=== PATIENT | male | born 1940 | race Caucasian/White ===

== ENCOUNTER 2018-03-06 21:37 | Inpatient (IN) | payer MEDICARE, BC ==
[~2018-03-06] VITALS: Ht 177.8 cm; Wt 101.2 kg
[2018-03-06] MEDS ORDERED: MEXI150C16 PO (22:00)
[2018-03-06] MEDS ORDERED: METO25TA6 PO (22:00)
[2018-03-06] MEDS ORDERED: AMIO200T4 PO (22:00)
[2018-03-06] MEDS ORDERED: HYDR-4354 PO (22:00)
[2018-03-06] MEDS ORDERED: ASPI81TA44 PO (22:00)
[2018-03-06] MEDS ORDERED: ATOR80TA PO (22:00)
[2018-03-06] MEDS ORDERED: ALLO100T PO (22:00)
[2018-03-06] MEDS ORDERED: OMEG1CAP74 PO (22:00)
[2018-03-06] MEDS ORDERED: LEVO500T90 PO (22:00)
[2018-03-06] MEDS ORDERED: FURO-151 PO (22:00)
[2018-03-06] MEDS ORDERED: IPRA3AMP23 IH ×2 (22:00)
[2018-03-06] MEDS ORDERED: ALPR0.5T8 PO (22:00)
[2018-03-06] MEDS ORDERED: METO2.5T2 PO (22:00)
[2018-03-06] MEDS ORDERED: [UNRECOGNIZED DRUG - CODE] PO (22:00)
--- NOTE | 2018-03-06 22:28 | NUR ---
Admitting this 77 y/o male from [facility] with diagnosis of acute congestive heart failure. AAO x 4, no acute distress noted. On O2 at 2LPM via NC. No SOB or labored breathing noted. Verbally responsive and able to make needs known. VSS. Complaining of lower back pain 7/10 pain scale. Arrived via ambulance on gurney accompanied by 2 EMT's and family member. Dr. Rubin made aware of pt arrival and Dr. Breana Keen notified regarding med recon - per MD, continue all medications. Med Recon faxed to pharmacy. Routine admission care done. Oriented pt to room & unit. MRSA swab completed and sent to lab. All safety measures and fall precautions maintained. Call light and all personal belongings within reach. Will continue to monitor. Addendum: 03/07/18 at 0220 by Jake Naik RN In addition, noted with bernabe cath upon arrival to unit. Patent and intact draining yellow, clear urine into bag. Denies pain or discomfort at site. Continuing Levaquin 500mg PO x 3 more days for UTI from [facility].
[2018-03-06] MEDS ORDERED: ALPRAZOLAM 0.5 MG TABLET PO PRN (22:30)
--- NOTE | 2018-03-06 22:30 | NUR ---
Per Dr. Breana Keen, continue fluid restriction of 1200 ml/day. Order noted and carried out. Patient informed and verbalized understanding. Will continue to monitor.
[2018-03-06 23:00] VITALS: BP 106/59
--- NOTE | 2018-03-06 23:21 | NUR ---
Patient complaining of inability to sleep and requesting Xanax 0.5mg from med recon list from [facility]. MD Breana Keen notified and ordered Xanax 0.5mg ONCE PO. Order noted and carried out, pt tolerated well. Call light within reach. Safety maintained. Will continue to monitor.
[2018-03-07] MEDS ORDERED: Z GUARD REMEDY PASTE 57 GM TUBE TOP PRN (00:15)
[2018-03-07] MEDS: HYDROCODONE/APAP 5-325MG TABLET PO PRN ×2 (01:07→20:34)
--- NOTE | 2018-03-07 01:08 | NUR ---
Patient complaining of pain in lower back 8/[address] Rubin with new order of [place] 5-325mg PO BID PRN. Order noted and carried out. Tolerated medication well. Safety maintained. Call light within reach. Will continue to monitor.
[2018-03-07 04:50] VITALS: BP 127/65
[2018-03-07 07:30] VITALS: BP 126/68
[2018-03-07] MEDS ORDERED: HYDROCODONE/APAP 10-325 MG TABLET PO PRN (08:00)
[2018-03-07] MEDS ORDERED: ALBUTEROL SULFATE 2.5 MG/ 0.5 ML NEBU NEB PRN (08:00)
[2018-03-07] MEDS ORDERED: IPRATROPIUM BROMIDE 0.5 MG/2.5 ML NEBU NEB PRN (08:30)
[2018-03-07] MEDS ORDERED: MEXILETINE HCL 150 MG CAPSULE PO SCH (08:41)
[2018-03-07] MEDS ORDERED: FUROSEMIDE 40 MG TABLET PO SCH (09:00)
[2018-03-07] MEDS ORDERED: LEVOFLOXACIN 500 MG TABLET PO SCH (09:00)
[2018-03-07] MEDS ORDERED: METOLAZONE 2.5 MG TABLET PO SCH (09:00)
[2018-03-07] MEDS ORDERED: METOLAZONE 5 MG TABLET PO SCH (09:00)
[2018-03-07] MEDS ORDERED: METOPROLOL TARTRATE 25 MG TABLET PO SCH (09:02)
[2018-03-07] MEDS: IPRATROPIUM BROMIDE 0.5 MG/2.5 ML NEBU NEB SCH ×3 (09:05→21:22)
[2018-03-07] MEDS: ALBUTEROL SULFATE 2.5 MG/ 0.5 ML NEBU NEB SCH ×3 (09:05→21:23)
[2018-03-07] MEDS: ALLOPURINOL 100 MG TABLET PO SCH (09:47)
[2018-03-07] MEDS: AMIODARONE HCL 200 MG TABLET PO SCH (09:47)
[2018-03-07] MEDS: MULTIVIT, IRON, MIN NO. 8, FA TABLET PO SCH (09:47)
[2018-03-07] MEDS: OMEGA-3 FATTY ACIDS/FISH OIL CAPSULE PO SCH ×2 (09:48→16:35)
--- NOTE | 2018-03-07 11:08 | NUR ---
Received nursing report from police shift commander nurse. Pt. in bed comfortable. Pt A/OX4, responds to verbal and tactile stimuli. No SOB or acute distress noted, on 2.5 LPM via NC w/ SpO2 of 95%. Administered all due medications as ordered and tolerated well. Fall precautions in place. Assisted pt. with morning ADL's. No new skin condition noted. Noted with BLE +4 edema. On fluid restriction of 1.2L per 24 hr, no s/sx of dehydration. F/C with clear yellow urine output. Bed in locked and lowest position with side rails up x2, alarm on. Call light within reach. Will continue to monitor.
--- NOTE | 2018-03-07 11:27 | NUR ---
Dr. Rubin on-site came and evaluated pt. Ordered cardio consult for dx: CHF. Placed call to Dr. Chand (Roller Mill Operator) and able to touch base.
[2018-03-07 13:23] LABS: BASOPHILS % (AUTO) 0.5 % (0.0-2.0); EOSINOPHILS # (AUTO) 0.1 K/uL (0.0-0.7); EOSINOPHILS % (AUTO) 1.1 % (0.0-7.0); HEMATOCRIT 29.1 % (36.7-47.1); HEMOGLOBIN 9.1 g/dL (12.5-16.3); LYMPHOCYTES # (AUTO) 0.8 K/uL (20.0-40.0); LYMPHOCYTES % (AUTO) 9.1 % (20.5-51.5); MEAN CORPUSCULAR HGB CONC 32 g/dL (32.5-36.3); MEAN CORPUSCULAR VOLUME 76.3 fL (73.0-96.2); MONOCYTES # (AUTO) 0.8 K/uL (2.0-10.0); MONOCYTES % (AUTO) 9.5 % (0.0-11.0); NEUTROPHILS # (AUTO) 6.8 K/uL (1.8-8.9); NEUTROPHILS % (AUTO) 79.8 % (38.5-71.5); PLATELET COUNT (AUTO) 336 K/uL (152-348); RED BLOOD CELL COUNT(AUTO) 3.81 MIL/uL (4.06-5.63); WHITE BLOOD COUNT (AUTO) 8.5 K/uL (3.6-10.2)
[2018-03-07 13:33] LABS: CARBON DIOXIDE 26 mmol/L (21-32); CHLORIDE 102 mmol/L (98-107); CREATININE 3.8 mg/dL (0.6-1.3); GLUCOSE 151 mg/dL (74-106); MAGNESIUM 2.4 mg/dL (1.8-2.4); PHOSPHOROUS 3.9 mg/dL (2.5-4.9); UREA NITROGEN, BLOOD 67 mg/dL (7-18)
[2018-03-07] MEDS ORDERED: MEXILETINE HCL 150 MG PO SCH (14:00)
--- NOTE | 2018-03-07 15:00 | NUR ---
Started PIV on LH (24G) x 1 attempt with good blood return, flushed with 5CC of 0.9% NS with no resistance met. Secured with tegaderm. Pt. tolerated procedure well. IV lasix given as ordered, no ASE noted.
[2018-03-07] MEDS: FUROSEMIDE 40 MG/4 ML VIAL IV SCH ×2 (15:19→21:25)
[2018-03-07] MEDS: LEVOFLOXACIN 250 MG TABLET PO SCH (15:36)
[2018-03-07] MEDS: METOLAZONE 2.5 MG TABLET PO SCH ×2 (15:39→16:37)
--- NOTE | 2018-03-07 15:47 | NUR ---
Received and relayed ekg results from Dr. Graham (Dehydrogenation Converter Operator). Noted ECG with abnormal rhythm, ST elevation. MD promptly made aware. No new order from MD at this time. Pt. remain asymptomatic, denies SOB, chest pain, chest tightness. No neck discomfort or tightness. Pt. denies anxiety, palpitations or shoulder discomfort. Will continue to monitor accordingly.
[2018-03-07 16:00] VITALS: BP 121/55
[2018-03-07] MEDS: CARVEDILOL 6.25 MG TABLET PO SCH (17:02)
--- NOTE | 2018-03-07 18:12 | NUR ---
End of shift: All due medications administered as ordered and tolerated well. Encouraged PO fluid intake as tolerated. No new skin condition noted. 2X upper side rails up as enabler for bed positioning and mobility. 5PM metolazone held as medication too close to administer to prior dose, consulted with house pharmacist and agreed. Pt. and family made aware and agreed. Of note, informed nursing staff that "[place]" med should not be given per pt. transportation mechanic (Dr. Morel). unable to provide phone number for Dr. Morel at this time. Call light and all frequently used items within pt. reach. Will endorse to oncoming shift accordingly.
[2018-03-07 19:25] VITALS: BP 106/65
--- NOTE | 2018-03-07 19:25 | NUR ---
SBAR received from day shift nurse. Pt alert and oriented x 4. No complaint of SOB or pain at this time. No SOB or acute distress noted. Patient of 2L of O2 at this time. Fall precautions in place. On fluid restrictions of 1.2 L per 24 hr. No signs or symptoms of dehydration. Romero catheter of clear yellow urine at this time. Call light and frequently used items within reach. Will continue to monitor.
[2018-03-07] MEDS: ALPRAZOLAM 0.5 MG TABLET PO PRN (20:34)
[2018-03-07] MEDS: ASPIRIN EC 81 MG TABLET.DR PO SCH (20:34)
--- NOTE | 2018-03-07 21:24 | NUR ---
PT REQUEST BREATHING TX EARLY BECAUSE HE WANTED TO SLEEP AND DID NOT WANT TO BE WAKEN UP AT 2300.
[2018-03-07] MEDS: ATORVASTATIN 40 MG TABLET PO SCH (21:25)
[2018-03-08 04:40] VITALS: BP 117/55
[2018-03-08] MEDS: FUROSEMIDE 40 MG/4 ML VIAL IV SCH ×3 (05:24→20:46)
--- NOTE | 2018-03-08 06:53 | NUR ---
No complaint of SOB or pain. All due medications given-tolerated well. IV pulled out overnight. New 24G IV in right hand placed. Intact and patent. Romero draining yellow urine. Safety precautions maintained throughout the shift. Side rails up bilaterally for safety. Call light and most used items within reach. Will endorse to oncoming shift accordingly.
[2018-03-08 07:30] LABS: ALANINE AMINOTRANSFERASE 53 U/L (16-63); ALKALINE PHOSPHATASE 110 U/L (50-136); ASPARTATE AMINOTRANSFERASE 38 U/L (15-37); BILIRUBIN,TOTAL 0.6 mg/dL (0.2-1.0); CARBON DIOXIDE 29 mmol/L (21-32); CHLORIDE 103 mmol/L (98-107); GLUCOSE 100 mg/dL (74-106); MAGNESIUM 2.1 mg/dL (1.8-2.4); POTASSIUM 3.4 mmol/L (3.5-5.1); TOTAL PROTEIN, SERUM 5.8 g/dL (6.4-8.2)
[2018-03-08 07:44] LABS: BASOPHILS # (AUTO) 0.1 K/uL (0.0-8.0); BASOPHILS % (AUTO) 0.7 % (0.0-2.0); EOSINOPHILS # (AUTO) 0.3 K/uL (0.0-0.7); EOSINOPHILS % (AUTO) 3.5 % (0.0-7.0); HEMATOCRIT 27.3 % (36.7-47.1); HEMOGLOBIN 8.8 g/dL (12.5-16.3); LYMPHOCYTES % (AUTO) 12.9 % (20.5-51.5); MEAN CORPUSCULAR HEMOGLOBIN 24.2 uug (23.8-33.4); MEAN CORPUSCULAR HGB CONC 32 g/dL (32.5-36.3); MEAN CORPUSCULAR VOLUME 75.4 fL (73.0-96.2); MONOCYTES # (AUTO) 0.9 K/uL (2.0-10.0); MONOCYTES % (AUTO) 11.3 % (0.0-11.0); NEUTROPHILS # (AUTO) 5.7 K/uL (1.8-8.9); NEUTROPHILS % (AUTO) 71.6 % (38.5-71.5); PLATELET COUNT (AUTO) 313 K/uL (152-348); RED BLOOD CELL COUNT(AUTO) 3.62 MIL/uL (4.06-5.63)
[2018-03-08 08:16] LABS: UREA NITROGEN, BLOOD 69 mg/dL (7-18)
[2018-03-08 08:35] VITALS: BP 127/63
[2018-03-08] MEDS ORDERED: METOLAZONE 5 MG TABLET PO SCH (09:00)
[2018-03-08] MEDS: ALBUTEROL SULFATE 2.5 MG/ 0.5 ML NEBU NEB SCH ×3 (09:05→23:20)
[2018-03-08] MEDS: IPRATROPIUM BROMIDE 0.5 MG/2.5 ML NEBU NEB SCH ×3 (09:06→23:20)
[2018-03-08] MEDS: MULTIVIT, IRON, MIN NO. 8, FA TABLET PO SCH (09:38)
[2018-03-08] MEDS: OMEGA-3 FATTY ACIDS/FISH OIL CAPSULE PO SCH ×2 (09:38→17:39)
[2018-03-08] MEDS: ALLOPURINOL 100 MG TABLET PO SCH (09:38)
[2018-03-08] MEDS: AMIODARONE HCL 200 MG TABLET PO SCH (09:38)
[2018-03-08] MEDS: CARVEDILOL 6.25 MG TABLET PO SCH ×2 (09:39→17:40)
[2018-03-08] MEDS: METOLAZONE 2.5 MG TABLET PO SCH ×2 (09:39→17:39)
[2018-03-08] MEDS ORDERED: POTASSIUM CHLORIDE 20 MEQ TAB.PRT.SR PO ONE (12:00)
[2018-03-08] MEDS: LEVOFLOXACIN 250 MG TABLET PO SCH (13:53)
[2018-03-08] MEDS ORDERED: MUPIROCIN 2% OINT 22 GM TUBE TP SCH (14:30)
--- NOTE | 2018-03-08 14:30 | NUR ---
informed him of his positive test results and that he will be on contact isolation. explained what that entails. verbalize understanding
[2018-03-08 16:55] VITALS: BP 137/71
--- NOTE | 2018-03-08 19:27 | NUR ---
SBAR received from day shift nurse. Pt alert and oriented x 4. No complaint of SOB or pain at this time. 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 Patient on 2L of O2 at this time. Fall precautions in place. On fluid restrictions of 1.2 L per 24 hr. Romero catheter flowing clear yellow urine at this time. Call light and frequently used items within reach. Will continue to monitor.
[2018-03-08] MEDS: ATORVASTATIN 40 MG TABLET PO SCH (20:46)
[2018-03-08] MEDS: ASPIRIN EC 81 MG TABLET.DR PO SCH (20:46)
[2018-03-08] MEDS: HYDROCODONE/APAP 5-325MG TABLET PO PRN (20:46)
[2018-03-08] MEDS: ALPRAZOLAM 0.5 MG TABLET PO PRN (20:46)
[2018-03-08] MEDS: MUPIROCIN 2% OINT 22 GM TUBE NS SCH (20:47)
[2018-03-08] MEDS ORDERED: MUPIROCIN 2% OINT 22 GM TUBE NS SCH (21:00)
[2018-03-08 21:19] VITALS: BP 99/51
[2018-03-09] MEDS: FUROSEMIDE 40 MG/4 ML VIAL IV SCH ×2 (05:00→05:30)
[2018-03-09 05:30] VITALS: BP 130/56
--- NOTE | 2018-03-09 05:58 | NUR ---
0530 dose of 40 mg IV Lasix attempted, unable to be given. IV infiltrated and 3 attempts made for a replacement. None successful. Patient refused further attempts requesting medication be given PO. Relayed to called to [facility] absorption operator doctor for further orders. No reply as of yet. Will continue to monitor.
--- NOTE | 2018-03-09 06:15 | NUR ---
Spoke with Dr. Monsalve about Lasix order. Ordered Lasix 40mg PO once, with rounding doctor to follow up. Will endorse to oncoming shift.
[2018-03-09] MEDS ORDERED: FUROSEMIDE 40 MG TABLET PO ONE (06:30)
[2018-03-09 07:49] LABS: BASOPHILS % (AUTO) 0.4 % (0.0-2.0); EOSINOPHILS # (AUTO) 0.3 K/uL (0.0-0.7); EOSINOPHILS % (AUTO) 3.4 % (0.0-7.0); HEMATOCRIT 28.4 % (36.7-47.1); HEMOGLOBIN 9.3 g/dL (12.5-16.3); LYMPHOCYTES # (AUTO) 0.8 K/uL (20.0-40.0); LYMPHOCYTES % (AUTO) 8.6 % (20.5-51.5); MEAN CORPUSCULAR HEMOGLOBIN 24.5 uug (23.8-33.4); MEAN CORPUSCULAR HGB CONC 33 g/dL (32.5-36.3); MEAN CORPUSCULAR VOLUME 74.9 fL (73.0-96.2); MONOCYTES # (AUTO) 0.9 K/uL (2.0-10.0); MONOCYTES % (AUTO) 9.6 % (0.0-11.0); NEUTROPHILS # (AUTO) 7.3 K/uL (1.8-8.9); PLATELET COUNT (AUTO) 337 K/uL (152-348); WHITE BLOOD COUNT (AUTO) 9.3 K/uL (3.6-10.2)
[2018-03-09 07:50] LABS: ALANINE AMINOTRANSFERASE 49 U/L (16-63); ALKALINE PHOSPHATASE 112 U/L (50-136); ASPARTATE AMINOTRANSFERASE 36 U/L (15-37); BILIRUBIN,TOTAL 0.6 mg/dL (0.2-1.0); CARBON DIOXIDE 29 mmol/L (21-32); CHLORIDE 102 mmol/L (98-107); CREATININE 3.7 mg/dL (0.6-1.3); GLUCOSE 113 mg/dL (74-106); MAGNESIUM 2.2 mg/dL (1.8-2.4); PHOSPHOROUS 3.9 mg/dL (2.5-4.9); POTASSIUM 3.3 mmol/L (3.5-5.1); TOTAL PROTEIN, SERUM 6.2 g/dL (6.4-8.2); UREA NITROGEN, BLOOD 67 mg/dL (7-18)
[2018-03-09 08:10] VITALS: BP 130/59
[2018-03-09] MEDS: ALLOPURINOL 100 MG TABLET PO SCH (09:24)
[2018-03-09] MEDS: MUPIROCIN 2% OINT 22 GM TUBE NS SCH ×2 (09:24→20:24)
[2018-03-09] MEDS: AMIODARONE HCL 200 MG TABLET PO SCH (09:24)
[2018-03-09] MEDS: MULTIVIT, IRON, MIN NO. 8, FA TABLET PO SCH (09:24)
[2018-03-09] MEDS: OMEGA-3 FATTY ACIDS/FISH OIL CAPSULE PO SCH ×2 (09:25→16:55)
[2018-03-09] MEDS: METOLAZONE 2.5 MG TABLET PO SCH ×2 (09:25→16:55)
[2018-03-09] MEDS: CARVEDILOL 6.25 MG TABLET PO SCH ×2 (09:25→17:00)
[2018-03-09] MEDS: ALBUTEROL SULFATE 2.5 MG/ 0.5 ML NEBU NEB SCH ×3 (09:52→22:44)
[2018-03-09] MEDS: IPRATROPIUM BROMIDE 0.5 MG/2.5 ML NEBU NEB SCH ×3 (09:52→22:44)
--- NOTE | 2018-03-09 10:00 | NUR ---
Received nursing report from hotel night auditor nurse. Pt. in w/c comfortable. Pt A/OX4, responds to verbal and tactile stimuli. No SOB or acute distress noted, on 2.5 LPM via NC w/ SpO2 of 97%. Administered all due medications as ordered and tolerated well. Fall precautions in place. Assisted pt. with morning ADL's. No new skin condition noted. Noted with BLE +4 edema, encouraged pt. to elevated BLE when in bed. On fluid restriction of 1.2L per 24 hr, no s/sx of dehydration. F/C with clear yellow urine output. Bed in locked and lowest position with side rails up x2, alarm on. Call light within reach. Will continue to monitor.
[2018-03-09 10:03] LABS: EOSINOPHILS % (MANUAL) 2 % (0-8); LYMPHOCYTES % (MANUAL) 5 % (20-40); MONOCYTES % (MANUAL) 6 % (2-10); NEUTROPHILS % (MANUAL) 87 % (42-75)
--- NOTE | 2018-03-09 11:00 | NUR ---
Dr. Bsos and Dr. Bansal came and seen pt. Informed MD that pt. refused IV to be started due to poor venous access. MD infante to d/c IV lasix and started pt. on PO Bumex. 3.3 Potassium level was replaced with KCL 40 MEQ PO once.
[2018-03-09] MEDS ORDERED: POTASSIUM CHLORIDE 20 MEQ POWDER PACKET PO ONE (11:15)
[2018-03-09] MEDS: BUMETANIDE 1 MG TABLET PO SCH ×2 (11:41→16:55)
[2018-03-09] MEDS: LEVOFLOXACIN 250 MG TABLET PO SCH (14:50)
--- NOTE | 2018-03-09 15:34 | NUR ---
INTERDISCIPLINARY TEAM CONFERENCE
[2018-03-09 16:11] VITALS: BP 123/60
--- NOTE | 2018-03-09 18:23 | NUR ---
End of shift: All due medications administered as ordered and tolerated well. No new skin condition noted. 2X upper side rails up as enabler for bed positioning and mobility. F/C patent and intact with yellow/clear urine output. Kept pt. clean and dry. Call light and all frequently used items within pt. reach. Will endorse to oncoming shift accordingly.
--- NOTE | 2018-03-09 19:25 | NUR ---
SBAR received from AM nurse. Pt alert and oriented x 4. No complaint of SOB or pain at this time. 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 Patient on 2L of O2 at this time. Fall precautions in place. On fluid restrictions of 1.2 L per 24 hr. Romero catheter flowing clear yellow urine at this time. Call light and frequently used items within reach. Will continue to monitor.
[2018-03-09] MEDS: ATORVASTATIN 40 MG TABLET PO SCH (20:24)
[2018-03-09] MEDS: ASPIRIN EC 81 MG TABLET.DR PO SCH (20:24)
[2018-03-09] MEDS: ALPRAZOLAM 0.5 MG TABLET PO PRN (20:27)
[2018-03-09] MEDS: HYDROCODONE/APAP 5-325MG TABLET PO PRN (20:28)
[2018-03-09 20:29] VITALS: BP 117/51
[2018-03-10 04:40] VITALS: BP 103/66
--- NOTE | 2018-03-10 06:55 | NUR ---
Patient slept well throughout the night. No distress or SOB during shift. All due medications given-tolerated well. Romero draining yellow urine. Safety precautions maintained throughout the shift. Side rails up bilaterally for safety. Call light and most used items within reach. Will endorse to oncoming shift accordingly.
[2018-03-10 07:20] VITALS: BP 115/51
[2018-03-10 07:33] LABS: ALANINE AMINOTRANSFERASE 47 U/L (16-63); ALKALINE PHOSPHATASE 121 U/L (50-136); ASPARTATE AMINOTRANSFERASE 35 U/L (15-37); BILIRUBIN,TOTAL 0.7 mg/dL (0.2-1.0); CARBON DIOXIDE 28 mmol/L (21-32); CHLORIDE 99 mmol/L (98-107); CREATININE 3.5 mg/dL (0.6-1.3); GLUCOSE 93 mg/dL (74-106); POTASSIUM 3.7 mmol/L (3.5-5.1); TOTAL PROTEIN, SERUM 6.5 g/dL (6.4-8.2); UREA NITROGEN, BLOOD 66 mg/dL (7-18)
[2018-03-10] MEDS: IPRATROPIUM BROMIDE 0.5 MG/2.5 ML NEBU NEB SCH ×3 (08:01→23:25)
[2018-03-10] MEDS: ALBUTEROL SULFATE 2.5 MG/ 0.5 ML NEBU NEB SCH ×3 (08:01→23:25)
[2018-03-10] MEDS: MUPIROCIN 2% OINT 22 GM TUBE NS SCH ×2 (08:13→20:33)
[2018-03-10] MEDS: METOLAZONE 2.5 MG TABLET PO SCH ×2 (08:14→17:17)
[2018-03-10] MEDS: OMEGA-3 FATTY ACIDS/FISH OIL CAPSULE PO SCH ×2 (08:14→17:17)
[2018-03-10] MEDS: AMIODARONE HCL 200 MG TABLET PO SCH (08:14)
[2018-03-10] MEDS: MULTIVIT, IRON, MIN NO. 8, FA TABLET PO SCH (08:14)
[2018-03-10] MEDS: ALLOPURINOL 100 MG TABLET PO SCH (08:14)
[2018-03-10] MEDS: BUMETANIDE 1 MG TABLET PO SCH ×2 (08:14→17:17)
[2018-03-10] MEDS: CARVEDILOL 6.25 MG TABLET PO SCH ×2 (08:15→17:19)
--- NOTE | 2018-03-10 10:54 | NUR ---
Received nursing report from fast food shift lead nurse. Pt. in w/c comfortable. Pt A/OX4, responds to verbal and tactile stimuli. No SOB or acute distress noted, on 2.5 LPM via NC w/ SpO2 of 97% tolerating well. Administered all due medications as ordered and tolerated well. Fall precautions in place. Assisted pt. with morning ADL's. No new skin condition noted. Encouraged pt. to elevated BLE when in bed. Remained on fluid restriction. F/C with clear yellow urine output. Bed in locked and lowest position with side rails up x2, alarm on. Call light within reach. Will continue to monitor.
--- NOTE | 2018-03-10 15:31 | NUR ---
INTERDISCIPLINARY TEAM CONFERENCE
[2018-03-10 16:00] VITALS: BP 121/58
--- NOTE | 2018-03-10 18:27 | NUR ---
End of shift: All due medications administered as ordered and tolerated well. No new skin condition noted. 2X upper side rails up as enabler for bed positioning and mobility. F/C patent and intact with yellow/clear urine output. Kept pt. clean and dry. No c/o from pt. throughout this shift. Call light and all frequently used items within pt. reach. Will endorse to oncoming shift accordingly.
[2018-03-10 19:50] VITALS: BP 111/53
[2018-03-10] MEDS: ASPIRIN EC 81 MG TABLET.DR PO SCH (20:33)
[2018-03-10] MEDS: ATORVASTATIN 40 MG TABLET PO SCH (20:33)
[2018-03-10] MEDS: ALPRAZOLAM 0.5 MG TABLET PO PRN (20:34)
[2018-03-10] MEDS: HYDROCODONE/APAP 5-325MG TABLET PO PRN (20:34)
--- NOTE | 2018-03-10 23:34 | NUR ---
Received pt sitting on the chair at bedside. AAO x4. On 2L O2 via NC, no acute distress noted. C/o pain on shoulder blades 07/20. [place] PRN given. All due meds given as ordered. Romero catheter draining well with yellow colored urine. Contact isolation implemented. Safety measures maintained. Call light and personal belongings within reach. Will continue to monitor.
[2018-03-11 04:30] VITALS: BP 103/44
--- NOTE | 2018-03-11 06:49 | NUR ---
Pt slept comfortably at night. Romero catheter draining well with clear yellow colored urine. All needs attended to promptly. No new changes t/o the shift. Continue to monitor.
[2018-03-11 07:20] VITALS: BP 100/50
[2018-03-11 07:58] LABS: ALANINE AMINOTRANSFERASE 31 U/L (16-63); ALKALINE PHOSPHATASE 89 U/L (50-136); ASPARTATE AMINOTRANSFERASE 30 U/L (15-37); BILIRUBIN,TOTAL 0.5 mg/dL (0.2-1.0); CARBON DIOXIDE 31 mmol/L (21-32); CHLORIDE 101 mmol/L (98-107); CREATININE 3.2 mg/dL (0.6-1.3); GLUCOSE 88 mg/dL (74-106); TOTAL PROTEIN, SERUM 5.2 g/dL (6.4-8.2); UREA NITROGEN, BLOOD 64 mg/dL (7-18)
[2018-03-11] MEDS: CARVEDILOL 6.25 MG TABLET PO SCH ×2 (08:00→17:08)
[2018-03-11] MEDS: MUPIROCIN 2% OINT 22 GM TUBE NS SCH ×2 (08:11→20:41)
[2018-03-11] MEDS: MULTIVIT, IRON, MIN NO. 8, FA TABLET PO SCH (08:12)
[2018-03-11] MEDS: OMEGA-3 FATTY ACIDS/FISH OIL CAPSULE PO SCH ×2 (08:12→16:52)
[2018-03-11] MEDS: ALLOPURINOL 100 MG TABLET PO SCH (08:12)
[2018-03-11] MEDS: BUMETANIDE 1 MG TABLET PO SCH ×2 (08:12→16:50)
[2018-03-11] MEDS: AMIODARONE HCL 200 MG TABLET PO SCH (08:12)
[2018-03-11] MEDS: METOLAZONE 2.5 MG TABLET PO SCH ×3 (08:12→16:50)
[2018-03-11] MEDS: IPRATROPIUM BROMIDE 0.5 MG/2.5 ML NEBU NEB SCH ×3 (08:24→23:30)
[2018-03-11] MEDS: ALBUTEROL SULFATE 2.5 MG/ 0.5 ML NEBU NEB SCH ×3 (08:24→23:30)
[2018-03-11] MEDS ORDERED: POTASSIUM CHLORIDE 20 MEQ TAB.PRT.SR PO ONE (08:45)
--- NOTE | 2018-03-11 10:19 | NUR ---
Received nursing report from plant operator/shift supervisor nurse. Pt. in w/c comfortable. Pt A/OX4, responds to verbal and tactile stimuli. No SOB or acute distress noted, on 2.0 LPM via NC w/ SpO2 of 97% tolerating well. Administered all due medications as ordered and tolerated well. Dr. Boss came and evaluated pt with new orders. MD promptly made aware of K: 3.3 level, MD with order for K replacement (40meq). Wt pt. this AM noted with 230# on chair scale and 270# on bed scale. Fall precautions in place. Assisted pt. with morning ADL's. No new skin condition noted. Encouraged pt. to elevated BLE when in bed. Maintained fluid restriction of 1.2L. F/C with clear yellow urine output. Bed in locked and lowest position with side rails up x2, alarm on. Call light within reach. Will continue to monitor.
[2018-03-11] MEDS: HYDROCODONE/APAP 5-325MG TABLET PO PRN ×2 (12:41→20:43)
[2018-03-11 16:06] VITALS: BP 119/50
--- NOTE | 2018-03-11 18:10 | NUR ---
End of shift: All due medications administered as ordered and tolerated well. No new skin condition noted. F/C patent and intact with yellow/clear urine output. Family at pt. bedside for support. Kept pt. clean and dry. Call light and all frequently used items within pt. reach. Will endorse to oncoming shift accordingly.
[2018-03-11 20:00] VITALS: BP 125/58
[2018-03-11] MEDS: ATORVASTATIN 40 MG TABLET PO SCH (20:41)
[2018-03-11] MEDS: ASPIRIN EC 81 MG TABLET.DR PO SCH (20:41)
[2018-03-11] MEDS: ALPRAZOLAM 0.5 MG TABLET PO PRN (20:43)
--- NOTE | 2018-03-11 22:05 | NUR ---
Received pt sitting on the chair at bedside. AAO x4. Son at bedside. On 2L O2 via NC, tolerating well. No acute distress noted. C/o pain 6/10 on the feet and shoulder blades. PRN [place] given. VSS. All due meds given as ordered. Romero catheter intact, draining with clear yellow colored urine. Safety measures maintained. Call light and personal belongings within reach. Will continue to monitor.
[2018-03-12 04:46] VITALS: BP 112/79
[2018-03-12] MEDS: HYDROCODONE/APAP 5-325MG TABLET PO PRN ×2 (06:23→20:12)
[2018-03-12 06:52] LABS: BASOPHILS # (AUTO) 0.1 K/uL (0.0-8.0); BASOPHILS % (AUTO) 0.7 % (0.0-2.0); EOSINOPHILS # (AUTO) 0.3 K/uL (0.0-0.7); EOSINOPHILS % (AUTO) 3.1 % (0.0-7.0); HEMATOCRIT 28.5 % (36.7-47.1); HEMOGLOBIN 9.2 g/dL (12.5-16.3); LYMPHOCYTES # (AUTO) 1.2 K/uL (20.0-40.0); LYMPHOCYTES % (AUTO) 12.1 % (20.5-51.5); MEAN CORPUSCULAR HGB CONC 32 g/dL (32.5-36.3); MONOCYTES % (AUTO) 10.1 % (0.0-11.0); NEUTROPHILS # (AUTO) 7.3 K/uL (1.8-8.9); PLATELET COUNT (AUTO) 317 K/uL (152-348); RED BLOOD CELL COUNT(AUTO) 3.85 MIL/uL (4.06-5.63); WHITE BLOOD COUNT (AUTO) 9.9 K/uL (3.6-10.2)
[2018-03-12 07:02] LABS: ALANINE AMINOTRANSFERASE 41 U/L (16-63); ALKALINE PHOSPHATASE 96 U/L (50-136); ASPARTATE AMINOTRANSFERASE 40 U/L (15-37); BILIRUBIN,TOTAL 0.5 mg/dL (0.2-1.0); CARBON DIOXIDE 30 mmol/L (21-32); CHLORIDE 101 mmol/L (98-107); CREATININE 3.4 mg/dL (0.6-1.3); GLUCOSE 102 mg/dL (74-106); POTASSIUM 3.3 mmol/L (3.5-5.1); UREA NITROGEN, BLOOD 66 mg/dL (7-18)
[2018-03-12 07:16] LABS: MAGNESIUM 1.9 mg/dL (1.8-2.4); PHOSPHOROUS 3.4 mg/dL (2.5-4.9)
[2018-03-12] MEDS: ALBUTEROL SULFATE 2.5 MG/ 0.5 ML NEBU NEB SCH ×3 (07:57→23:19)
[2018-03-12] MEDS: IPRATROPIUM BROMIDE 0.5 MG/2.5 ML NEBU NEB SCH ×3 (07:57→23:19)
[2018-03-12 08:00] VITALS: BP 96/63
[2018-03-12] MEDS: BUMETANIDE 1 MG TABLET PO SCH ×2 (09:22→16:04)
[2018-03-12] MEDS: OMEGA-3 FATTY ACIDS/FISH OIL CAPSULE PO SCH ×2 (09:22→16:10)
[2018-03-12] MEDS: CARVEDILOL 6.25 MG TABLET PO SCH ×2 (09:24→16:10)
[2018-03-12] MEDS: METOLAZONE 2.5 MG TABLET PO SCH ×2 (09:24→16:02)
[2018-03-12] MEDS: ALLOPURINOL 100 MG TABLET PO SCH (09:24)
[2018-03-12] MEDS: MULTIVIT, IRON, MIN NO. 8, FA TABLET PO SCH (09:25)
[2018-03-12] MEDS: AMIODARONE HCL 200 MG TABLET PO SCH (09:26)
[2018-03-12] MEDS: MUPIROCIN 2% OINT 22 GM TUBE NS SCH ×2 (09:29→20:12)
[2018-03-12] MEDS ORDERED: POTASSIUM CHLORIDE 20 MEQ POWDER PACKET PO ONE (10:15)
[2018-03-12 16:00] VITALS: BP 121/57
[2018-03-12 19:47] VITALS: BP 110/53
[2018-03-12] MEDS: ASPIRIN EC 81 MG TABLET.DR PO SCH (20:11)
[2018-03-12] MEDS: ATORVASTATIN 40 MG TABLET PO SCH (20:11)
[2018-03-12] MEDS: ALPRAZOLAM 0.5 MG TABLET PO PRN (20:11)
[2018-03-13 06:00] VITALS: BP 104/45
--- NOTE | 2018-03-13 06:44 | NUR ---
No significant change on this shift. No distress or SOB during shift. All due medications given-tolerated well. Romero draining yellow urine. Safety precautions maintained throughout the shift. Side rails up bilaterally for safety. Call light and most used items within reach. Will endorse to oncoming shift accordingly.
[2018-03-13 07:30] VITALS: BP 126/58
[2018-03-13] MEDS: ALBUTEROL SULFATE 2.5 MG/ 0.5 ML NEBU NEB SCH ×3 (08:22→22:30)
[2018-03-13] MEDS: IPRATROPIUM BROMIDE 0.5 MG/2.5 ML NEBU NEB SCH ×3 (08:22→22:30)
[2018-03-13] MEDS: BUMETANIDE 1 MG TABLET PO SCH ×2 (08:49→17:08)
[2018-03-13] MEDS: CARVEDILOL 6.25 MG TABLET PO SCH ×2 (08:49→17:09)
[2018-03-13] MEDS: METOLAZONE 2.5 MG TABLET PO SCH (08:50)
[2018-03-13] MEDS: AMIODARONE HCL 200 MG TABLET PO SCH (08:50)
[2018-03-13] MEDS: ALLOPURINOL 100 MG TABLET PO SCH (08:50)
[2018-03-13] MEDS: OMEGA-3 FATTY ACIDS/FISH OIL CAPSULE PO SCH ×2 (08:50→17:08)
[2018-03-13] MEDS: MULTIVIT, IRON, MIN NO. 8, FA TABLET PO SCH (08:50)
[2018-03-13 09:15] LABS: ALANINE AMINOTRANSFERASE 45 U/L (16-63); ALKALINE PHOSPHATASE 97 U/L (50-136); ASPARTATE AMINOTRANSFERASE 42 U/L (15-37); BILIRUBIN,TOTAL 0.6 mg/dL (0.2-1.0); CARBON DIOXIDE 33 mmol/L (21-32); CHLORIDE 98 mmol/L (98-107); CREATININE 3.9 mg/dL (0.6-1.3); GLUCOSE 115 mg/dL (74-106); POTASSIUM 3.6 mmol/L (3.5-5.1); TOTAL PROTEIN, SERUM 6.2 g/dL (6.4-8.2); UREA NITROGEN, BLOOD 72 mg/dL (7-18)
--- NOTE | 2018-03-13 13:10 | NUR ---
INTERDISCIPLINARY TEAM CONFERENCE
--- NOTE | 2018-03-13 14:07 | NUR ---
Patient seen and examined by MD Bansal with ordered d/c metolazone 5mg and continue daily CMP while diuresing. not in distress. Continue on fluid restriction for CHF. will continue monitor
[2018-03-13 16:00] VITALS: BP 121/61
--- NOTE | 2018-03-13 19:50 | NUR ---
Patient received sitting in chair. AAO x4. Able to make needs known. No sign of acute distress or SOB was noted. On room air. Complained of pain, rated 8/10 on his left ankle and back. Romero catheter in place, draining well with yellow urine. On MRSA isolation. Patient assessed. Assisted him to the bed. Safety measures maintained. Fall prevention observed. Bed in low position, brake and alarm on, side rails up x2 for safety. Call light and personal belongings within reach. Will continue to monitor.
[2018-03-13 20:00] VITALS: BP 115/52
[2018-03-13] MEDS: ASPIRIN EC 81 MG TABLET.DR PO SCH (20:34)
[2018-03-13] MEDS: ATORVASTATIN 40 MG TABLET PO SCH (20:34)
[2018-03-13] MEDS: HYDROCODONE/APAP 5-325MG TABLET PO PRN (20:34)
[2018-03-13] MEDS: ALPRAZOLAM 0.5 MG TABLET PO PRN (20:35)
--- NOTE | 2018-03-14 06:48 | NUR ---
End of the shift note Patient was stable throughout the shift and had a good sleep last night. No sign of acute distress or SOB noted. Complained of pain on his ankle and back, Nar[place]5-325 tab given, pain reassess again. Medications given as ordered and well tolerated. Keep him clean and dry. Fluid restriction maintained. Romero catheter in place, draining well olivia urine. Safety measures maintained. Hourly rounds done. All needs anticipated promptly. Fall precaution maintained. Bed in low position, brake and alarm on, side rails up x2. Call light and personal belongings within reach. Continue to monitor and will endorse to the day shift nurse accordingly.
[2018-03-14 07:03] LABS: BASOPHILS # (AUTO) 0.1 K/uL (0.0-8.0); BASOPHILS % (AUTO) 0.9 % (0.0-2.0); EOSINOPHILS # (AUTO) 0.4 K/uL (0.0-0.7); EOSINOPHILS % (AUTO) 4.5 % (0.0-7.0); HEMATOCRIT 28.2 % (36.7-47.1); HEMOGLOBIN 9.2 g/dL (12.5-16.3); LYMPHOCYTES # (AUTO) 1.2 K/uL (20.0-40.0); LYMPHOCYTES % (AUTO) 12.6 % (20.5-51.5); MEAN CORPUSCULAR HGB CONC 33 g/dL (32.5-36.3); MEAN CORPUSCULAR VOLUME 73.8 fL (73.0-96.2); MONOCYTES # (AUTO) 0.9 K/uL (2.0-10.0); NEUTROPHILS # (AUTO) 7.1 K/uL (1.8-8.9); PLATELET COUNT (AUTO) 308 K/uL (152-348); RED BLOOD CELL COUNT(AUTO) 3.83 MIL/uL (4.06-5.63); WHITE BLOOD COUNT (AUTO) 9.7 K/uL (3.6-10.2)
[2018-03-14 07:15] LABS: CARBON DIOXIDE 30 mmol/L (21-32); CHLORIDE 98 mmol/L (98-107); GLUCOSE 104 mg/dL (74-106); POTASSIUM 3.5 mmol/L (3.5-5.1); UREA NITROGEN, BLOOD 75 mg/dL (7-18)
[2018-03-14 07:16] LABS: ALANINE AMINOTRANSFERASE 49 U/L (16-63); ALKALINE PHOSPHATASE 96 U/L (50-136); ASPARTATE AMINOTRANSFERASE 49 U/L (15-37); BILIRUBIN,TOTAL 0.5 mg/dL (0.2-1.0); MAGNESIUM 1.9 mg/dL (1.8-2.4); PHOSPHOROUS 3.9 mg/dL (2.5-4.9); TOTAL PROTEIN, SERUM 6.3 g/dL (6.4-8.2)
[2018-03-14] MEDS: IPRATROPIUM BROMIDE 0.5 MG/2.5 ML NEBU NEB SCH ×3 (07:59→22:30)
[2018-03-14] MEDS: ALBUTEROL SULFATE 2.5 MG/ 0.5 ML NEBU NEB SCH ×3 (07:59→22:30)
[2018-03-14 08:00] VITALS: BP 116/50
[2018-03-14] MEDS: OMEGA-3 FATTY ACIDS/FISH OIL CAPSULE PO SCH ×2 (08:42→17:18)
[2018-03-14] MEDS: CARVEDILOL 6.25 MG TABLET PO SCH ×2 (08:42→17:19)
[2018-03-14] MEDS: MULTIVIT, IRON, MIN NO. 8, FA TABLET PO SCH (08:42)
[2018-03-14] MEDS: AMIODARONE HCL 200 MG TABLET PO SCH (08:42)
[2018-03-14] MEDS: BUMETANIDE 1 MG TABLET PO SCH ×2 (08:42→17:18)
[2018-03-14] MEDS: ALLOPURINOL 100 MG TABLET PO SCH (08:42)
--- NOTE | 2018-03-14 09:35 | NUR ---
I agree with treatment provided Addendum: 03/18/18 at 0940 by DEVIN AGUILERA, PT PT Amended: Links added.
--- NOTE | 2018-03-14 09:37 | NUR ---
I agree with treatment provided
--- NOTE | 2018-03-14 13:09 | NUR ---
Patient continue on fluid restriction of 1200ml per day for CHF tolerated well. Continue with consultation of cardio and urologist. no complaint of pain/discomfort. will continue monitor
--- NOTE | 2018-03-14 16:49 | NUR ---
Patient seen and examined by MD Gusman and ordered decrease dose of bumex from 2mg to 1mg. seen and examined by MD Segovia, lab results notified. no new order. will continue monitor
[2018-03-14 19:47] VITALS: BP 126/57
[2018-03-14] MEDS: ALPRAZOLAM 0.5 MG TABLET PO PRN (20:41)
[2018-03-14] MEDS: ATORVASTATIN 40 MG TABLET PO SCH (20:41)
[2018-03-14] MEDS: ASPIRIN EC 81 MG TABLET.DR PO SCH (20:41)
[2018-03-14] MEDS: HYDROCODONE/APAP 5-325MG TABLET PO PRN (20:42)
--- NOTE | 2018-03-14 21:36 | NUR ---
Received pt sitting on the chair at bedside and both legs elevated. AAO x4. Son at bedside. No acute distress noted. C/o pain on the left leg/foot 08/19 due to edema. All due meds given as ordered. VSS. Safety measures maintained. Call light and personal belongings within reach. Will continue to monitor.
[2018-03-15] MEDS: HYDROCODONE/APAP 5-325MG TABLET PO PRN ×2 (03:31→20:17)
[2018-03-15 04:55] VITALS: BP 117/58
[2018-03-15 07:30] LABS: BASOPHILS # (AUTO) 0.1 K/uL (0.0-8.0); BASOPHILS % (AUTO) 0.7 % (0.0-2.0); EOSINOPHILS # (AUTO) 0.4 K/uL (0.0-0.7); EOSINOPHILS % (AUTO) 3.9 % (0.0-7.0); HEMATOCRIT 28.7 % (36.7-47.1); HEMOGLOBIN 9.2 g/dL (12.5-16.3); LYMPHOCYTES # (AUTO) 1.2 K/uL (20.0-40.0); LYMPHOCYTES % (AUTO) 12.8 % (20.5-51.5); MEAN CORPUSCULAR HEMOGLOBIN 23.8 uug (23.8-33.4); MEAN CORPUSCULAR HGB CONC 32 g/dL (32.5-36.3); MEAN CORPUSCULAR VOLUME 74.4 fL (73.0-96.2); MONOCYTES # (AUTO) 0.8 K/uL (2.0-10.0); MONOCYTES % (AUTO) 8.8 % (0.0-11.0); NEUTROPHILS # (AUTO) 7.1 K/uL (1.8-8.9); NEUTROPHILS % (AUTO) 73.8 % (38.5-71.5); PLATELET COUNT (AUTO) 291 K/uL (152-348); RED BLOOD CELL COUNT(AUTO) 3.86 MIL/uL (4.06-5.63); WHITE BLOOD COUNT (AUTO) 9.6 K/uL (3.6-10.2)
[2018-03-15 07:38] LABS: ALANINE AMINOTRANSFERASE 43 U/L (16-63); ALKALINE PHOSPHATASE 94 U/L (50-136); ASPARTATE AMINOTRANSFERASE 47 U/L (15-37); BILIRUBIN,TOTAL 0.5 mg/dL (0.2-1.0); CARBON DIOXIDE 30 mmol/L (21-32); CHLORIDE 98 mmol/L (98-107); CREATININE 3.6 mg/dL (0.6-1.3); GLUCOSE 108 mg/dL (74-106); MAGNESIUM 1.9 mg/dL (1.8-2.4); PHOSPHOROUS 3.8 mg/dL (2.5-4.9); POTASSIUM 3.2 mmol/L (3.5-5.1); TOTAL PROTEIN, SERUM 6.4 g/dL (6.4-8.2); UREA NITROGEN, BLOOD 75 mg/dL (7-18)
[2018-03-15] MEDS: CARVEDILOL 6.25 MG TABLET PO SCH ×2 (08:00→17:08)
[2018-03-15] MEDS: IPRATROPIUM BROMIDE 0.5 MG/2.5 ML NEBU NEB SCH ×3 (08:07→22:30)
[2018-03-15] MEDS: ALBUTEROL SULFATE 2.5 MG/ 0.5 ML NEBU NEB SCH ×3 (08:07→22:30)
[2018-03-15] MEDS: AMIODARONE HCL 200 MG TABLET PO SCH (08:20)
[2018-03-15] MEDS: BUMETANIDE 1 MG TABLET PO SCH ×2 (08:21→17:07)
[2018-03-15] MEDS: ALLOPURINOL 100 MG TABLET PO SCH (08:21)
[2018-03-15] MEDS: MULTIVIT, IRON, MIN NO. 8, FA TABLET PO SCH (08:21)
[2018-03-15] MEDS: OMEGA-3 FATTY ACIDS/FISH OIL CAPSULE PO SCH ×2 (08:21→17:07)
[2018-03-15 09:17] VITALS: BP 103/58
--- NOTE | 2018-03-15 09:45 | NUR ---
Received nursing report from supervising editor trailer nurse. Pt. in w/c comfortable. Pt A/OX4, responds to verbal and tactile stimuli. No SOB or acute distress noted, on 2.0 LPM via NC w/ SpO2 of 96% tolerating well. Administered all due medications as ordered and tolerated well. Wt pt. this AM noted with 225# on bed scale. Fall precautions in place. Assisted pt. with morning ADL's. No new skin condition noted. Encouraged pt. to elevated BLE when in bed. Maintained fluid restriction of 1.2L. F/C with clear yellow urine output. Bed in locked and lowest position with side rails up x2, alarm on. Call light within reach. Will continue to monitor.
--- NOTE | 2018-03-15 11:27 | NUR ---
Promptly notified Dr. Boss on-site of 3.2 K level. Received order for KCL 20 meq po x 1 dose from . Orders noted and carried out. Pt. made aware.
[2018-03-15] MEDS ORDERED: POTASSIUM CHLORIDE 20 MEQ TAB.PRT.SR PO ONE (11:30)
[2018-03-15 16:44] VITALS: BP 112/52
--- NOTE | 2018-03-15 18:17 | NUR ---
End of shift: All due medications administered as ordered and tolerated well. No new skin condition noted. F/C patent and intact with yellow/clear urine output. Maintained fluid restriction as ordered, no s/sx of hypo/hyperglycemia. Kept pt. clean and dry. Call light and all frequently used items within pt. reach. Will endorse to oncoming shift accordingly.
[2018-03-15 19:52] VITALS: BP 117/59
[2018-03-15] MEDS: ATORVASTATIN 40 MG TABLET PO SCH (20:17)
[2018-03-15] MEDS: ALPRAZOLAM 0.5 MG TABLET PO PRN (20:17)
[2018-03-15] MEDS: ASPIRIN EC 81 MG TABLET.DR PO SCH (20:17)
--- NOTE | 2018-03-15 20:23 | NUR ---
Received pt sitting on the chair at bedside. AAO x4. No acute distress noted, on room air, tolerating well at 99%. C/o pain on left ankle 08/19, PRN [place] given. All due meds given as ordered. VSS. Both feet elevated. Romero catheter draining with clear yellow colored urine. Fluid restriction maintained as ordered. Safety measures maintained. Call light and personal belongings within reach. Will continue to monitor.
[2018-03-16 04:32] VITALS: BP 107/39
--- NOTE | 2018-03-16 06:58 | NUR ---
Pt slept comfortably at night. All needs attended to promptly. Romero catheter draining with clear yellow colored urine. Fluid restriction maintained. Will endorse to oncoming shift.
[2018-03-16 07:54] LABS: CARBON DIOXIDE 31 mmol/L (21-32); CHLORIDE 98 mmol/L (98-107); CREATININE 3.4 mg/dL (0.6-1.3); GLUCOSE 94 mg/dL (74-106); POTASSIUM 3.3 mmol/L (3.5-5.1); UREA NITROGEN, BLOOD 75 mg/dL (7-18)
[2018-03-16] MEDS: CARVEDILOL 6.25 MG TABLET PO SCH ×2 (08:00→17:00)
[2018-03-16 08:07] VITALS: BP 99/61
[2018-03-16] MEDS: OMEGA-3 FATTY ACIDS/FISH OIL CAPSULE PO SCH ×2 (08:10→16:58)
[2018-03-16] MEDS: BUMETANIDE 1 MG TABLET PO SCH ×2 (08:10→16:58)
[2018-03-16] MEDS: ALLOPURINOL 100 MG TABLET PO SCH (08:10)
[2018-03-16] MEDS: MULTIVIT, IRON, MIN NO. 8, FA TABLET PO SCH (08:10)
[2018-03-16] MEDS: AMIODARONE HCL 200 MG TABLET PO SCH (08:11)
[2018-03-16] MEDS: ALBUTEROL SULFATE 2.5 MG/ 0.5 ML NEBU NEB SCH ×3 (08:14→23:26)
[2018-03-16] MEDS: IPRATROPIUM BROMIDE 0.5 MG/2.5 ML NEBU NEB SCH ×3 (08:14→23:26)
--- NOTE | 2018-03-16 09:16 | NUR ---
Received nursing report from plumber's helper nurse. Pt. in w/c comfortable. Pt A/OX4, responds to verbal and tactile stimuli. No SOB or acute distress noted, on RA tolerating well. Administered all due medications as ordered and tolerated well. Wt pt. this AM noted with 223# on bed scale. Fall precautions in place. Assisted pt. with morning ADL's. No new skin condition noted. Encouraged pt. to elevated BLE when in bed. Maintained fluid restriction of 1.2L. F/C with clear yellow urine output. Bed in locked and lowest position with side rails up x2, alarm on. Call light within reach. Will continue to monitor.
--- NOTE | 2018-03-16 11:14 | NUR ---
Promptly relayed to low K level (3.3). Received order for KCL 20 meq PO x 1 dose and repeat BMP on 03/17/18. Orders noted and carried out. Pt. made aware.
[2018-03-16] MEDS ORDERED: POTASSIUM CHLORIDE 20 MEQ TAB.PRT.SR PO ONE (11:15)
[2018-03-16 16:38] VITALS: BP 119/56
--- NOTE | 2018-03-16 18:11 | NUR ---
End of shift: All due medications administered as ordered and tolerated well. No new skin condition noted. F/C patent and intact with yellow/clear urine output. Maintained fluid restriction as ordered, no s/sx of dehydration. Kept pt. clean and dry. Call light and all frequently used items within pt. reach. Will endorse to oncoming shift accordingly.
[2018-03-16 20:08] VITALS: BP 122/49
[2018-03-16] MEDS: ALPRAZOLAM 0.5 MG TABLET PO PRN (20:15)
[2018-03-16] MEDS: ASPIRIN EC 81 MG TABLET.DR PO SCH (20:15)
[2018-03-16] MEDS: ATORVASTATIN 40 MG TABLET PO SCH (20:15)
[2018-03-16] MEDS: HYDROCODONE/APAP 5-325MG TABLET PO PRN (20:17)
[2018-03-17 04:47] VITALS: BP 112/51
[2018-03-17 07:46] LABS: CARBON DIOXIDE 30 mmol/L (21-32); CHLORIDE 99 mmol/L (98-107); CREATININE 3.2 mg/dL (0.6-1.3); GLUCOSE 97 mg/dL (74-106); POTASSIUM 3.2 mmol/L (3.5-5.1); UREA NITROGEN, BLOOD 75 mg/dL (7-18)
[2018-03-17] MEDS: CARVEDILOL 6.25 MG TABLET PO SCH ×2 (08:00→17:11)
[2018-03-17] MEDS: BUMETANIDE 1 MG TABLET PO SCH ×2 (08:01→16:32)
[2018-03-17] MEDS: ALLOPURINOL 100 MG TABLET PO SCH (08:01)
[2018-03-17] MEDS: OMEGA-3 FATTY ACIDS/FISH OIL CAPSULE PO SCH ×2 (08:01→16:32)
[2018-03-17] MEDS: MULTIVIT, IRON, MIN NO. 8, FA TABLET PO SCH (08:01)
[2018-03-17] MEDS: AMIODARONE HCL 200 MG TABLET PO SCH (08:02)
[2018-03-17] MEDS: IPRATROPIUM BROMIDE 0.5 MG/2.5 ML NEBU NEB SCH ×3 (09:07→22:57)
[2018-03-17] MEDS: ALBUTEROL SULFATE 2.5 MG/ 0.5 ML NEBU NEB SCH ×3 (09:07→22:57)
[2018-03-17 09:18] VITALS: BP 107/48
--- NOTE | 2018-03-17 09:58 | NUR ---
Received nursing report from [facility] shift lead nurse. Pt. in chair comfortable. Pt A/OX4, responds to verbal and tactile stimuli. No SOB or acute distress noted, on RA tolerating well. Administered all due medications as ordered and tolerated well. Fall precautions in place. No new skin condition noted. Encouraged pt. to elevated BLE when in bed. Maintained fluid restriction of 1.2L. F/C with clear yellow urine output. Bed in locked and at lowest position with side rails up x2, alarm on. Call light within reach. Will continue to monitor.
[2018-03-17] MEDS ORDERED: POTASSIUM CHLORIDE 10 MEQ TAB.PRT.SR PO ONE (13:15)
[2018-03-17] MEDS ORDERED: METOLAZONE 5 MG TABLET PO ONE (13:15)
[2018-03-17] MEDS: POTASSIUM CHLORIDE 10 MEQ TAB.PRT.SR PO SCH ×2 (14:32→16:31)
[2018-03-17 16:51] VITALS: BP 107/62
--- NOTE | 2018-03-17 17:13 | NUR ---
Received BMP order from Dr. Boss. Orders noted and carried out. Pt. made aware.
--- NOTE | 2018-03-17 18:18 | NUR ---
End of shift: All due medications administered as ordered and tolerated well. No new skin condition noted. F/C patent and intact with yellow/clear urine output. Potassium replacement (60 meq) given today for low K (3.3) level, tolerated well. Maintained fluid restriction as ordered, no s/sx of dehydration. Kept pt. clean and dry. Call light and all frequently used items within pt. reach. Will endorse to oncoming shift accordingly.
--- NOTE | 2018-03-17 19:49 | NUR ---
SBAR received from day shift nurse. Alert and orient x4. Patient found to be resting in chair comfortable at this time. Family at the bedside. C/O pain upon assessment. Will give pain medication. Romero intact and patent. Maintained of 1200 mL of fluid restriction at this time. Side rails up bilaterally with most used items within reach. Will continue to monitor.
[2018-03-17 20:04] VITALS: BP 109/57
[2018-03-17] MEDS: ALPRAZOLAM 0.5 MG TABLET PO PRN (20:25)
[2018-03-17] MEDS: ASPIRIN EC 81 MG TABLET.DR PO SCH (20:25)
[2018-03-17] MEDS: ATORVASTATIN 40 MG TABLET PO SCH (20:25)
[2018-03-17] MEDS: HYDROCODONE/APAP 5-325MG TABLET PO PRN (20:27)
[2018-03-18 04:00] VITALS: BP 106/48
--- NOTE | 2018-03-18 06:48 | NUR ---
No significant change overnight. All due medications administered as ordered and tolerated well. Romero patent and intact with yellow/clear urine output. Maintained fluid restriction as ordered, no s/sx of dehydration. Kept pt. clean and dry. Call light and all frequently used items within reach Will endorse to oncoming shift accordingly.
[2018-03-18 08:00] VITALS: BP 114/60
[2018-03-18] MEDS: CARVEDILOL 6.25 MG TABLET PO SCH ×2 (08:00→17:13)
[2018-03-18] MEDS: IPRATROPIUM BROMIDE 0.5 MG/2.5 ML NEBU NEB SCH ×3 (08:02→23:48)
[2018-03-18] MEDS: ALBUTEROL SULFATE 2.5 MG/ 0.5 ML NEBU NEB SCH ×3 (08:02→23:48)
[2018-03-18 08:10] LABS: CARBON DIOXIDE 31 mmol/L (21-32); CHLORIDE 100 mmol/L (98-107); CREATININE 3.4 mg/dL (0.6-1.3); GLUCOSE 87 mg/dL (74-106); POTASSIUM 3.8 mmol/L (3.5-5.1); UREA NITROGEN, BLOOD 75 mg/dL (7-18)
[2018-03-18] MEDS: OMEGA-3 FATTY ACIDS/FISH OIL CAPSULE PO SCH ×2 (08:58→17:12)
[2018-03-18] MEDS: ALLOPURINOL 100 MG TABLET PO SCH (08:58)
[2018-03-18] MEDS: BUMETANIDE 1 MG TABLET PO SCH ×2 (08:58→16:48)
[2018-03-18] MEDS: MULTIVIT, IRON, MIN NO. 8, FA TABLET PO SCH (08:58)
[2018-03-18] MEDS: POTASSIUM CHLORIDE 10 MEQ TAB.PRT.SR PO SCH ×2 (08:59→16:49)
[2018-03-18] MEDS: AMIODARONE HCL 200 MG TABLET PO SCH (08:59)
[2018-03-18] MEDS ORDERED: METOLAZONE 5 MG TABLET PO ONE (13:45)
[2018-03-18 16:00] VITALS: BP 119/65
--- NOTE | 2018-03-18 18:09 | NUR ---
SBAR report received this morning. Pt assessed NAD and no SOB. Pt reports slight pain at this time but requests to hold back pain medication until around 2000hr. Pt cooperative with all therapies as offered. Pt compliant with routinely scheduled medication administration. VSS. Pt resting comfortably sitting up in chair, with BLLE elevated due to 3-4+ pitting edema remaining present. VSS. All comfort and safety needs met promptly. Plan of care discussed regarding discharge for tomorrow between 10-11am. No changes to health status. Pt seen by MD. No new orders. Call light placed within reach, will continue to monitor and endorse to oncoming shift coordinator nurse.
[2018-03-18 19:50] VITALS: BP 104/52
[2018-03-18] MEDS: ALPRAZOLAM 0.5 MG TABLET PO PRN (20:35)
[2018-03-18] MEDS: ASPIRIN EC 81 MG TABLET.DR PO SCH (20:35)
[2018-03-18] MEDS: ATORVASTATIN 40 MG TABLET PO SCH (20:35)
[2018-03-18] MEDS: HYDROCODONE/APAP 5-325MG TABLET PO PRN (20:36)
[2018-03-19 04:00] VITALS: BP 122/68
[2018-03-19 07:30] VITALS: BP 120/54
[2018-03-19] MEDS: ALBUTEROL SULFATE 2.5 MG/ 0.5 ML NEBU NEB SCH (07:35)
[2018-03-19] MEDS: IPRATROPIUM BROMIDE 0.5 MG/2.5 ML NEBU NEB SCH (07:35)
[2018-03-19] MEDS: POTASSIUM CHLORIDE 10 MEQ TAB.PRT.SR PO SCH (10:11)
[2018-03-19] MEDS: OMEGA-3 FATTY ACIDS/FISH OIL CAPSULE PO SCH (10:11)
[2018-03-19] MEDS: ALLOPURINOL 100 MG TABLET PO SCH (10:11)
[2018-03-19] MEDS: MULTIVIT, IRON, MIN NO. 8, FA TABLET PO SCH (10:11)
[2018-03-19] MEDS: BUMETANIDE 1 MG TABLET PO SCH (10:11)
[2018-03-19] MEDS: AMIODARONE HCL 200 MG TABLET PO SCH (10:11)
[2018-03-19 10:12] VITALS: BP 120/54
[2018-03-19] MEDS: CARVEDILOL 6.25 MG TABLET PO SCH (10:12)
--- NOTE | 2018-03-19 10:49 | NUR ---
HERE WITH CAREGIVER TO D/C TO HOME. D/C INSTRUCTIONS GIVEN MEDS FAXED TO PHARMACY. VERBALIZED UNDERSTANDING OF INFORMATION. D/C ORDER ON FILE. NO SKIN ISSUES NOTED DURING STAY NO D/C PICS TAKEN. VSS 120/54-97.9-73-19 98% SAT ROOM AIR
[2018-05-23] MEDS ORDERED: BUME2TAB7 PO (19:04)
== END 2018-03-19 11:15 | disposition home health service (06) | DRG 291 ==
PROVIDERS: ADMIT Physical Medicine & Rehabilitation Pain Medicine; ATTEND Physical Medicine & Rehabilitation Pain Medicine
DX: I13.0 Hypertensive heart and chronic kidney disease with heart failure and stage 1 through stage 4 chronic kidney disease, or unspecified chronic kidney disease (principal); I50.43 Acute on chronic combined systolic (congestive) and diastolic (congestive) heart failure; J96.01 Acute respiratory failure with hypoxia; N18.4 Chronic kidney disease, stage 4 (severe); N17.9 Acute kidney failure, unspecified; N39.0 Urinary tract infection, site not specified; D64.9 Anemia, unspecified; I25.10 Atherosclerotic heart disease of native coronary artery without angina pectoris; I25.5 Ischemic cardiomyopathy; I27.20 Pulmonary hypertension, unspecified; N40.1 Benign prostatic hyperplasia with lower urinary tract symptoms; R33.8 Other retention of urine; R53.1 Weakness; E87.6 Hypokalemia; I25.2 Old myocardial infarction; K21.9 Gastro-esophageal reflux disease without esophagitis; M89.9 Disorder of bone, unspecified; Z95.1 Presence of aortocoronary bypass graft; Z95.810 Presence of automatic (implantable) cardiac defibrillator; Z88.0 Allergy status to penicillin; Z88.2 Allergy status to sulfonamides; I49.9 Cardiac arrhythmia, unspecified
CPT/HCPCS: 36415; 71045; 83735; 84100; 85025; 92507; 92526; 92610; 93005; 93307; 94640; 94664; 97110; 97112; 97116; 97530; 97535; J1940; J3590; J8499

== ENCOUNTER 2018-04-17 13:46 | Inpatient (IN) | payer MEDICARE, BC ==
[~2018-04-17] VITALS: Ht 175.3 cm; Wt 94.3 kg
[~2018-04-17 13:46] MED LIST: ALLO100T PO; ALPR0.5T8 PO; AMIO200T4 PO; ASPI81TA44 PO; ATOR80TA PO; FURO-151 PO; HYDR-4354 PO; IPRA3AMP23 IH; LEVO500T90 PO; METO2.5T2 PO; METO25TA6 PO; MEXI150C16 PO; OMEG1CAP74 PO; [UNRECOGNIZED DRUG - CODE] PO
[2018-04-17] MEDS ORDERED: AMIT50TA3 PO (14:03)
[2018-04-17] MEDS ORDERED: POTA10TA15 PO (14:03)
[2018-04-17] MEDS ORDERED: BUME2TAB7 PO (14:03)
--- NOTE | 2018-04-17 14:06 | NUR ---
PT IS IN ROOM #2B. DR SAHU EVALUATED THE PT.
[2018-04-17 15:00] LABS: BASOPHILS # (AUTO) 0.1 K/uL (0.0-8.0); BASOPHILS % (AUTO) 0.6 % (0.0-2.0); EOSINOPHILS # (AUTO) 0.2 K/uL (0.0-0.7); HEMATOCRIT 29.6 % (36.7-47.1); HEMOGLOBIN 9.3 g/dL (12.5-16.3); LYMPHOCYTES # (AUTO) 1.1 K/uL (20.0-40.0); LYMPHOCYTES % (AUTO) 13.3 % (20.5-51.5); MEAN CORPUSCULAR HEMOGLOBIN 23.6 uug (23.8-33.4); MEAN CORPUSCULAR VOLUME 75.3 fL (73.0-96.2); MONOCYTES # (AUTO) 0.7 K/uL (2.0-10.0); MONOCYTES % (AUTO) 8.2 % (0.0-11.0); NEUTROPHILS # (AUTO) 6.1 K/uL (1.8-8.9); NEUTROPHILS % (AUTO) 75.9 % (38.5-71.5); PLATELET COUNT (AUTO) 310 K/uL (152-348); RED BLOOD CELL COUNT(AUTO) 3.94 MIL/uL (4.06-5.63)
[2018-04-17 15:05] LABS: CARBON DIOXIDE 23 mmol/L (21-32); CHLORIDE 107 mmol/L (98-107); CREATININE 3.4 mg/dL (0.6-1.3); GLUCOSE 140 mg/dL (74-106); POTASSIUM 4.4 mmol/L (3.5-5.1); UREA NITROGEN, BLOOD 65 mg/dL (7-18)
[2018-04-17 15:06] LABS: MEAN CORPUSCULAR HGB CONC 32 g/dL (32.5-36.3)
[2018-04-17 15:17] LABS: ALANINE AMINOTRANSFERASE 36 U/L (16-63); ALKALINE PHOSPHATASE 113 U/L (50-136); ASPARTATE AMINOTRANSFERASE 20 U/L (15-37); BILIRUBIN,DIRECT 0.3 mg/dL (0.0-0.2); BILIRUBIN,TOTAL 0.7 mg/dL (0.2-1.0)
[2018-04-17] MEDS ORDERED: HYDROCODONE/APAP 5-325MG TABLET PO ONE (16:45)
--- NOTE | 2018-04-17 16:46 | NUR ---
REPORT WAS GIVEN TO PROGRESSIVE CARE MANAGER.
[2018-04-17] MEDS ORDERED: HYDROCODONE/APAP 5-325MG TABLET ONE (16:55)
--- NOTE | 2018-04-17 17:06 | NUR ---
PT WAS TRANSFERED TO TELEMETRY ROOM #322.
[2018-04-17 17:50] VITALS: BP 140/79
--- NOTE | 2018-04-17 17:50 | NUR ---
77 YEAR OLD MALE RECEIVED FROM ER VIA WHEEL CHAIR FOR CHF IN STABLE CONDITION,V/S ARE STABLE,CALL LIGHT WITH IN REACH CALLED FOR ADMISSION ORDERS
[2018-04-17] MEDS ORDERED: BUMETANIDE 1 MG/4 ML VIAL IV ONE (19:00)
--- NOTE | 2018-04-17 20:00 | NUR ---
Received patient laying comfortably in bed. No acute distress noted. A/O x 4. Patient is on O2 2L NC. IV on the left AC, patent and intact. Patient is TELE V pacing at 70. Skin intact. Patient is ambulatory with assists. Patient has a bernabe that is not draining just some residual blood on the bag. Bed alarm on. Bed in low and locked position. Safety initiated. Call light within reach. Will closely monitor.
[2018-04-17 20:05] VITALS: BP 117/48
[2018-04-17] MEDS: OMEGA-3 FATTY ACIDS/FISH OIL CAPSULE PO SCH (20:24)
[2018-04-17] MEDS: ASPIRIN EC 81 MG TABLET.DR PO SCH (20:24)
[2018-04-17] MEDS: POTASSIUM CHLORIDE 10 MEQ TAB.PRT.SR PO SCH (20:24)
[2018-04-17] MEDS: AMITRIPTYLINE HCL 50 MG TABLET PO SCH (20:24)
[2018-04-17] MEDS: ATORVASTATIN 40 MG TABLET PO SCH (20:25)
--- NOTE | 2018-04-17 20:35 | NUR ---
Re-assessed why the bernbae is not draining. It was not inserted properly. Charge nurse Kathya re-inserted the bernabe and irrigated it with NR. Bernabe is now draining. 900 urine output. Will continue to monitor.
[2018-04-17] MEDS: HYDROCODONE/APAP 10-325 MG TABLET PO PRN (20:55)
[2018-04-17] MEDS: ALPRAZOLAM 0.5 MG TABLET PO PRN (21:39)
[2018-04-18 00:06] VITALS: BP 154/70
[2018-04-18 04:05] VITALS: BP 104/56
--- NOTE | 2018-04-18 06:49 | NUR ---
Patient slept t/o shift. No acute distress noted. Vital signs stable. TELE V pacing at 70. On O2 2L NC. Romero draining yellow urine with no sediments. All meds given as ordered. All needs met.
[2018-04-18 07:26] LABS: BASOPHILS # (AUTO) 0.1 K/uL (0.0-8.0); BASOPHILS % (AUTO) 0.8 % (0.0-2.0); EOSINOPHILS # (AUTO) 0.3 K/uL (0.0-0.7); EOSINOPHILS % (AUTO) 3.6 % (0.0-7.0); HEMATOCRIT 29.2 % (36.7-47.1); HEMOGLOBIN 9.1 g/dL (12.5-16.3); LYMPHOCYTES # (AUTO) 1.2 K/uL (20.0-40.0); LYMPHOCYTES % (AUTO) 16.2 % (20.5-51.5); MEAN CORPUSCULAR HEMOGLOBIN 23.7 uug (23.8-33.4); MEAN CORPUSCULAR HGB CONC 31 g/dL (32.5-36.3); MEAN CORPUSCULAR VOLUME 75.9 fL (73.0-96.2); MONOCYTES # (AUTO) 0.6 K/uL (2.0-10.0); MONOCYTES % (AUTO) 8.1 % (0.0-11.0); NEUTROPHILS # (AUTO) 5.4 K/uL (1.8-8.9); NEUTROPHILS % (AUTO) 71.3 % (38.5-71.5); PLATELET COUNT (AUTO) 256 K/uL (152-348); RED BLOOD CELL COUNT(AUTO) 3.85 MIL/uL (4.06-5.63); WHITE BLOOD COUNT (AUTO) 7.6 K/uL (3.6-10.2)
[2018-04-18 07:45] LABS: CARBON DIOXIDE 25 mmol/L (21-32); CHLORIDE 109 mmol/L (98-107); CREATININE 3.4 mg/dL (0.6-1.3); GLUCOSE 105 mg/dL (74-106); POTASSIUM 4.2 mmol/L (3.5-5.1); UREA NITROGEN, BLOOD 62 mg/dL (7-18)
[2018-04-18] MEDS: BUMETANIDE 1 MG TABLET PO SCH ×2 (10:18→14:19)
[2018-04-18] MEDS: AMIODARONE HCL 200 MG TABLET PO SCH (10:19)
[2018-04-18] MEDS: OMEGA-3 FATTY ACIDS/FISH OIL CAPSULE PO SCH ×2 (10:20→20:59)
[2018-04-18] MEDS: POTASSIUM CHLORIDE 10 MEQ TAB.PRT.SR PO SCH ×2 (10:20→20:59)
[2018-04-18] MEDS: ALLOPURINOL 100 MG TABLET PO SCH (10:20)
[2018-04-18] MEDS: MULTIVIT, IRON, MIN NO. 8, FA TABLET PO SCH (10:20)
[2018-04-18 11:37] VITALS: BP 97/53
[2018-04-18] MEDS ORDERED: METOLAZONE 5 MG TABLET PO ONE (13:15)
[2018-04-18] MEDS: HYDROCODONE/APAP 10-325 MG TABLET PO PRN ×2 (14:21→22:09)
[2018-04-18 14:49] LABS: *BILIRUBIN,URIN NEGATIVE (NEGATIVE); *BLOOD, URINE 2+ (NEGATIVE); *CLARITY,URINE CLOUDY (CLEAR); *COLOR,URINE YELLOW (YELLOW); *KETONES,URINE NEGATIVE (NEGATIVE); *UROBILINOGEN,URINE 0.2 E.U./dl (NORMAL); LEUKOCYTE ESTERASE ,URINE 3+ (NEGATIVE); NITRITE, URINE POSITIVE (NEGATIVE); UGLUCOSE NEGATIVE (NEGATIVE)
[2018-04-18 15:01] LABS: *CREATININE,URINE 37.8 mg/dL (30-125); *URINE TOTAL PROTEIN RANDOM 106.7 mg/dL (<150/24HR)
[2018-04-18 15:51] VITALS: BP 125/70
[2018-04-18 16:12] LABS: BACTERIA,URINE MANY /HPF (NONE SEEN); MUCUS,URINE MODERATE /LPF (0-FEW); RBC,URINE 20-50 /HPF (0-3); WBC,URINE TNTC /HPF (0-3)
[2018-04-18] MEDS: FUROSEMIDE 40 MG/4 ML VIAL IV SCH ×2 (16:49→20:59)
[2018-04-18] MEDS: MUPIROCIN 2% OINT 22 GM TUBE NS SCH ×2 (17:48→20:59)
--- NOTE | 2018-04-18 20:00 | NUR ---
Received patient sitting comfortably in the chair. No acute distress noted. A/O x 4. Family at bedside. Patient is on O2 2L NC. IV on the left AC, patent and intact. Patient is TELE V pacing at 72. Skin intact. Patient is ambulatory with assists. Patient has a bernabe that is draining clear and yellow urine. Noted 2+ pitting edema. Elevated. Bed alarm on. Bed in low and locked position. Safety initiated. Call light within reach. Will closely monitor.
[2018-04-18 20:08] VITALS: BP 124/55
[2018-04-18] MEDS: ATORVASTATIN 40 MG TABLET PO SCH (20:59)
[2018-04-18] MEDS: AMITRIPTYLINE HCL 50 MG TABLET PO SCH (22:09)
[2018-04-18] MEDS: ASPIRIN EC 81 MG TABLET.DR PO SCH (22:09)
[2018-04-19] VITALS: BP 109/56
[2018-04-19] MEDS: FUROSEMIDE 40 MG/4 ML VIAL IV SCH ×4 (00:39→20:13)
[2018-04-19 04:00] VITALS: BP 95/48
--- NOTE | 2018-04-19 05:52 | NUR ---
Patient slept t/o shift. No acute distress noted. Vital signs stable. TELE A pacing at 70 with PVC's. On O2 2L NC. Romero draining yellow urine with no sediments. Good urine output. Legs elevated due to edematous with 2+ pitting. Safety and comfort measures maintained t/o shift. All meds given as ordered. All needs met.
[2018-04-19 07:01] LABS: BASOPHILS # (AUTO) 0.2 K/uL (0.0-8.0); BASOPHILS % (AUTO) 1.6 % (0.0-2.0); EOSINOPHILS # (AUTO) 0.5 K/uL (0.0-0.7); EOSINOPHILS % (AUTO) 5.1 % (0.0-7.0); HEMATOCRIT 31.5 % (36.7-47.1); HEMOGLOBIN 9.9 g/dL (12.5-16.3); LYMPHOCYTES # (AUTO) 1.6 K/uL (20.0-40.0); LYMPHOCYTES % (AUTO) 15.7 % (20.5-51.5); MEAN CORPUSCULAR HGB CONC 32 g/dL (32.5-36.3); MEAN CORPUSCULAR VOLUME 76.1 fL (73.0-96.2); MONOCYTES # (AUTO) 0.8 K/uL (2.0-10.0); NEUTROPHILS # (AUTO) 6.9 K/uL (1.8-8.9); NEUTROPHILS % (AUTO) 69.6 % (38.5-71.5); PLATELET COUNT (AUTO) 287 K/uL (152-348); RED BLOOD CELL COUNT(AUTO) 4.14 MIL/uL (4.06-5.63); WHITE BLOOD COUNT (AUTO) 9.9 K/uL (3.6-10.2)
--- NOTE | 2018-04-19 07:15 | NUR ---
RECEIVED PATIENT IN BED, ASLEEP, EASILY AWAKENED, AOX3. DENIES PAIN OR SOB AND NO DISTRESS NOTED. ON TELE V PACED. ON RA SATURATING AT 95%. FC IN PLACE WITH CLEAR, YELLOW URINE OUT. LT. AC HL IV LINE INTACT AND FLUSHED. LEGS ELEVATED DUE TO BLE EDEMA. SAFETY PRECAUTIONS IN PLACE. CALL LIGHT IN REACH. BED IN LOW POSITION. ALL NEEDS MET AT THIS TIME. WILL CONTINUE TO MONITOR.
[2018-04-19 07:43] LABS: ALANINE AMINOTRANSFERASE 32 U/L (16-63); ALKALINE PHOSPHATASE 110 U/L (50-136); ASPARTATE AMINOTRANSFERASE 21 U/L (15-37); BILIRUBIN,TOTAL 0.6 mg/dL (0.2-1.0); CARBON DIOXIDE 24 mmol/L (21-32); CHLORIDE 108 mmol/L (98-107); CREATININE 3.2 mg/dL (0.6-1.3); GLUCOSE 100 mg/dL (74-106); MAGNESIUM 2.6 mg/dL (1.8-2.4); PHOSPHOROUS 4.2 mg/dL (2.5-4.9); POTASSIUM 4.4 mmol/L (3.5-5.1); TOTAL PROTEIN, SERUM 6.1 g/dL (6.4-8.2); UREA NITROGEN, BLOOD 59 mg/dL (7-18)
[2018-04-19] MEDS: MUPIROCIN 2% OINT 22 GM TUBE NS SCH ×2 (08:48→20:42)
[2018-04-19] MEDS: MULTIVIT, IRON, MIN NO. 8, FA TABLET PO SCH (08:49)
[2018-04-19] MEDS: ALLOPURINOL 100 MG TABLET PO SCH (08:49)
[2018-04-19] MEDS: OMEGA-3 FATTY ACIDS/FISH OIL CAPSULE PO SCH ×2 (08:49→20:42)
[2018-04-19] MEDS: POTASSIUM CHLORIDE 10 MEQ TAB.PRT.SR PO SCH ×2 (08:49→20:42)
[2018-04-19] MEDS: AMIODARONE HCL 200 MG TABLET PO SCH (11:24)
[2018-04-19 11:48] VITALS: BP 119/51
[2018-04-19] MEDS ORDERED: METOLAZONE 5 MG TABLET PO ONE (12:15)
[2018-04-19 12:43] LABS: *BILIRUBIN,URIN NEGATIVE (NEGATIVE); *CLARITY,URINE SLIGHTLY CLOUDY (CLEAR); *COLOR,URINE LIGHT YELLOW (YELLOW); *KETONES,URINE NEGATIVE (NEGATIVE); *UROBILINOGEN,URINE 0.2 E.U./dl (NORMAL); LEUKOCYTE ESTERASE ,URINE 2+ (NEGATIVE); NITRITE, URINE POSITIVE (NEGATIVE); UGLUCOSE NEGATIVE (NEGATIVE)
[2018-04-19 12:46] LABS: *BLOOD, URINE TRACE (NEGATIVE)
[2018-04-19 12:48] LABS: *CREATININE,URINE 20.8 mg/dL (30-125); *URINE TOTAL PROTEIN RANDOM 36.4 mg/dL (<150/24HR)
[2018-04-19] MEDS: LEVOFLOXACIN 250 MG TABLET PO SCH (12:52)
[2018-04-19 13:18] LABS: BACTERIA,URINE FEW /HPF (NONE SEEN); SQUAMOUS EPITHELIAL CELL,UR FEW /HPF (NONE SEEN)
[2018-04-19 13:19] LABS: MUCUS,URINE FEW /LPF (0-FEW)
[2018-04-19 15:44] VITALS: BP 104/59
[2018-04-19 16:50] VITALS: BP 108/67
--- NOTE | 2018-04-19 18:20 | NUR ---
PATIENT AOX3. DENIES PAIN OR SOB OR ANY DISTRESS. ON TELE SR WITH PVC TO OCCASIONAL V PACED AT 70'S. ON RA SATURATING AT 95%. FC IN PLACE WITH CLEAR, YELLOW URINE OUT. LT. AC HL IV LINE INTACT AND FLUSHED. LEGS ELEVATED THROUGHOUT THE SHIFT. VS STABLE THROUGHOUT THE SHIFT. PATIENT COMPLIANT WITH ALL MEDICATIONS. SAFETY PRECAUTIONS IN PLACE. CALL LIGHT IN REACH. BED IN LOW POSITION.
[2018-04-19 20:00] VITALS: BP 116/65
[2018-04-19] MEDS: AMITRIPTYLINE HCL 50 MG TABLET PO SCH (20:42)
[2018-04-19] MEDS: HYDROCODONE/APAP 10-325 MG TABLET PO PRN (20:42)
[2018-04-19] MEDS: ASPIRIN EC 81 MG TABLET.DR PO SCH (20:42)
[2018-04-19] MEDS: ATORVASTATIN 40 MG TABLET PO SCH (20:42)
[2018-04-20 00:07] VITALS: BP 120/57
[2018-04-20 04:00] VITALS: BP 119/46
--- NOTE | 2018-04-20 05:20 | NUR ---
pt rested well in between care; lasix administered as ordered; c/o pain, norco given po with good results; SR on tele; VSS.
[2018-04-20 06:59] LABS: ALANINE AMINOTRANSFERASE 26 U/L (16-63); ALKALINE PHOSPHATASE 107 U/L (50-136); ASPARTATE AMINOTRANSFERASE 12 U/L (15-37); BILIRUBIN,TOTAL 0.8 mg/dL (0.2-1.0); CARBON DIOXIDE 28 mmol/L (21-32); CHLORIDE 102 mmol/L (98-107); CREATININE 3.1 mg/dL (0.6-1.3); GLUCOSE 91 mg/dL (74-106); MAGNESIUM 2.1 mg/dL (1.8-2.4); PHOSPHOROUS 3.8 mg/dL (2.5-4.9); POTASSIUM 3.5 mmol/L (3.5-5.1); TOTAL PROTEIN, SERUM 6.3 g/dL (6.4-8.2); UREA NITROGEN, BLOOD 55 mg/dL (7-18)
[2018-04-20 07:20] LABS: BASOPHILS # (AUTO) 0.1 K/uL (0.0-8.0); BASOPHILS % (AUTO) 0.6 % (0.0-2.0); EOSINOPHILS # (AUTO) 0.5 K/uL (0.0-0.7); EOSINOPHILS % (AUTO) 5.1 % (0.0-7.0); HEMATOCRIT 31.4 % (36.7-47.1); HEMOGLOBIN 9.9 g/dL (12.5-16.3); LYMPHOCYTES # (AUTO) 1.4 K/uL (20.0-40.0); LYMPHOCYTES % (AUTO) 14.5 % (20.5-51.5); MEAN CORPUSCULAR HEMOGLOBIN 23.6 uug (23.8-33.4); MEAN CORPUSCULAR HGB CONC 32 g/dL (32.5-36.3); MEAN CORPUSCULAR VOLUME 74.7 fL (73.0-96.2); MONOCYTES # (AUTO) 0.8 K/uL (2.0-10.0); MONOCYTES % (AUTO) 8.4 % (0.0-11.0); NEUTROPHILS # (AUTO) 6.7 K/uL (1.8-8.9); NEUTROPHILS % (AUTO) 71.4 % (38.5-71.5); PLATELET COUNT (AUTO) 299 K/uL (152-348); RED BLOOD CELL COUNT(AUTO) 4.21 MIL/uL (4.06-5.63); WHITE BLOOD COUNT (AUTO) 9.5 K/uL (3.6-10.2)
[2018-04-20 09:35] LABS: BASOPHILS % (MANUAL) 1 % (0-2); EOSINOPHILS % (MANUAL) 6 % (0-8); LYMPHOCYTES % (MANUAL) 17 % (20-40); MONOCYTES % (MANUAL) 10 % (2-10); NEUTROPHILS % (MANUAL) 66 % (42-75)
[2018-04-20] MEDS: MULTIVIT, IRON, MIN NO. 8, FA TABLET PO SCH (09:40)
[2018-04-20] MEDS: OMEGA-3 FATTY ACIDS/FISH OIL CAPSULE PO SCH ×2 (09:40→20:09)
[2018-04-20] MEDS: POTASSIUM CHLORIDE 10 MEQ TAB.PRT.SR PO SCH ×2 (09:40→20:09)
[2018-04-20] MEDS: ALLOPURINOL 100 MG TABLET PO SCH (09:40)
[2018-04-20] MEDS: AMIODARONE HCL 200 MG TABLET PO SCH (09:45)
[2018-04-20] MEDS: MUPIROCIN 2% OINT 22 GM TUBE NS SCH ×2 (09:47→20:10)
[2018-04-20 11:29] VITALS: BP 99/52
[2018-04-20] MEDS ORDERED: BUMETANIDE INJ 3 MG in IV DEXTROSE 5% 38 ML IV ONE (11:30)
[2018-04-20] MEDS: LEVOFLOXACIN 250 MG TABLET PO SCH (12:38)
--- NOTE | 2018-04-20 14:08 | NUR ---
Patient awake, alert and oriented. No signs of acute distress at this time. IV access patent. Romero catheter in placed with clear, yellow urine output. Safety and comfort measures implemented. Bed on lowest and locked position with side rails up x2. Call light within reach. All needs met at this time. Will continue to monitor throughout shift.
[2018-04-20 15:59] VITALS: BP 116/62
[2018-04-20] MEDS: BUMETANIDE 1 MG TABLET PO SCH (16:42)
[2018-04-20] MEDS: CARVEDILOL 6.25 MG TABLET PO SCH (18:57)
--- NOTE | 2018-04-20 19:19 | NUR ---
Patient alert, awake and oriented. Patient sitting comfortably in chair. No signs of acute distress. Denies pain at this time. IV line in tact and flushed. Patient tolerated and compliant with all medications. Romero catheter in place with clear, yellow urine output. Call light within reach. Safety and comfort measures implemented.
--- NOTE | 2018-04-20 20:00 | NUR ---
Received patient awake alert & oriented, no SOB denies chest pain. Vital signs are stable, A-paced on Tele HR 78 bpm. Noted Left AC IV line infiltrated.
[2018-04-20] MEDS: AMITRIPTYLINE HCL 50 MG TABLET PO SCH (20:09)
[2018-04-20] MEDS: HYDROCODONE/APAP 10-325 MG TABLET PO PRN (20:09)
[2018-04-20] MEDS: ASPIRIN EC 81 MG TABLET.DR PO SCH (20:09)
[2018-04-20] MEDS: ATORVASTATIN 40 MG TABLET PO SCH (20:11)
[2018-04-20 20:41] VITALS: BP 118/65
--- NOTE | 2018-04-20 21:30 | NUR ---
Routine night meds given, patient c/o lower back discomfort 6/10 pain level. [place] 1 tab po given. Patient tolerated. left AC heplock removed. Inserted new line on right forearm w/ [id number]. Placed patient back to bed. Sponge bath provided. Kept comfortable. Will continue to monitor.
[2018-04-20] MEDS: ALPRAZOLAM 0.5 MG TABLET PO PRN (22:38)
--- NOTE | 2018-04-20 22:59 | NUR ---
Patient still awake & anxious. Xanax 0.5 ng p.o given per patient request.
--- NOTE | 2018-04-21 07:05 | NUR ---
Rested well. No acute resp distress, assisted w/ all needs. Vital signs WNL.
[2018-04-21 07:12] LABS: BASOPHILS # (AUTO) 0.1 K/uL (0.0-8.0); BASOPHILS % (AUTO) 0.7 % (0.0-2.0); EOSINOPHILS # (AUTO) 0.4 K/uL (0.0-0.7); EOSINOPHILS % (AUTO) 4.5 % (0.0-7.0); HEMATOCRIT 30.3 % (36.7-47.1); HEMOGLOBIN 9.4 g/dL (12.5-16.3); LYMPHOCYTES # (AUTO) 1.6 K/uL (20.0-40.0); LYMPHOCYTES % (AUTO) 19.3 % (20.5-51.5); MEAN CORPUSCULAR HGB CONC 31 g/dL (32.5-36.3); MEAN CORPUSCULAR VOLUME 74.6 fL (73.0-96.2); MONOCYTES # (AUTO) 0.8 K/uL (2.0-10.0); MONOCYTES % (AUTO) 10.2 % (0.0-11.0); NEUTROPHILS # (AUTO) 5.4 K/uL (1.8-8.9); NEUTROPHILS % (AUTO) 65.3 % (38.5-71.5); PLATELET COUNT (AUTO) 271 K/uL (152-348); RED BLOOD CELL COUNT(AUTO) 4.06 MIL/uL (4.06-5.63); WHITE BLOOD COUNT (AUTO) 8.3 K/uL (3.6-10.2)
[2018-04-21 07:27] LABS: ALANINE AMINOTRANSFERASE 19 U/L (16-63); ALKALINE PHOSPHATASE 93 U/L (50-136); ASPARTATE AMINOTRANSFERASE 14 U/L (15-37); BILIRUBIN,TOTAL 0.6 mg/dL (0.2-1.0); CARBON DIOXIDE 29 mmol/L (21-32); CHLORIDE 101 mmol/L (98-107); CREATININE 3.1 mg/dL (0.6-1.3); GLUCOSE 105 mg/dL (74-106); PHOSPHOROUS 3.8 mg/dL (2.5-4.9); POTASSIUM 3.3 mmol/L (3.5-5.1); TOTAL PROTEIN, SERUM 5.6 g/dL (6.4-8.2); UREA NITROGEN, BLOOD 58 mg/dL (7-18)
[2018-04-21] MEDS: CARVEDILOL 6.25 MG TABLET PO SCH ×2 (08:00→18:00)
[2018-04-21] MEDS: OMEGA-3 FATTY ACIDS/FISH OIL CAPSULE PO SCH ×2 (10:02→20:51)
[2018-04-21] MEDS: ALLOPURINOL 100 MG TABLET PO SCH (10:02)
[2018-04-21] MEDS: BUMETANIDE 1 MG TABLET PO SCH ×2 (10:02→16:09)
[2018-04-21] MEDS: MULTIVIT, IRON, MIN NO. 8, FA TABLET PO SCH (10:02)
[2018-04-21] MEDS: AMIODARONE HCL 200 MG TABLET PO SCH (10:06)
[2018-04-21] MEDS: MUPIROCIN 2% OINT 22 GM TUBE NS SCH ×2 (10:13→20:53)
[2018-04-21] MEDS: POTASSIUM CHLORIDE 10 MEQ TAB.PRT.SR PO SCH ×2 (10:15→20:51)
[2018-04-21] MEDS ORDERED: POTASSIUM CHLORIDE 20 MEQ TAB.PRT.SR PO ONE (10:45)
--- NOTE | 2018-04-21 11:15 | NUR ---
Received patient awake, alert and oriented x4. Assessments done. Vitals signs WNL. Tolerated routine morning meds. No complaints of pain. No signs of acute distress at this time. Romero catheter in place, draining with cloudy, yellow urine output. Safety precautions implemented- bed locked and in lowest position. Call light within reach.
[2018-04-21 12:00] VITALS: BP 126/63
[2018-04-21] MEDS: LEVOFLOXACIN 250 MG TABLET PO SCH (12:17)
[2018-04-21] MEDS ORDERED: VANCOMYCIN IV 1,250 MG in IV DEXTROSE 5% 500 ML IV ONE (16:00)
[2018-04-21 16:40] VITALS: BP 121/69
--- NOTE | 2018-04-21 18:27 | NUR ---
PATIENT COMPLAINED OF PAIN AT THE IV SITE. NEW IV IN PLACE ON RIGHT HAND 20 GAUGE WITH ANTIBIOTIC RUNNING. NO ACUTE DISTRESS NOTED. PATIENT COMPLIANT WITH ALL MEDICATIONS. VS STABLE THROUGHOUT SHIFT. SAFETY AND COMFORT MEASURES IMPLEMENTED AND EFFECTIVE. CALL LIGHT WITHIN REACH AND BED IN LOWEST AND LOCKED POSITION.
[2018-04-21 20:00] VITALS: BP 125/67
[2018-04-21] MEDS: ATORVASTATIN 40 MG TABLET PO SCH (20:51)
[2018-04-21] MEDS: AMITRIPTYLINE HCL 50 MG TABLET PO SCH (20:51)
[2018-04-21] MEDS: ASPIRIN EC 81 MG TABLET.DR PO SCH (20:51)
[2018-04-21] MEDS: HYDROCODONE/APAP 10-325 MG TABLET PO PRN (20:52)
--- NOTE | 2018-04-21 22:30 | NUR ---
No significant change, routine meds adm po. Romero care provided. Vital signs WNL. Nor co 1 tab po given per patient request.
[2018-04-22 04:00] VITALS: BP 96/44
--- NOTE | 2018-04-22 06:00 | NUR ---
Patient rested well throughout shift, assisted with all needs. No acute resp distress, O2Sat 97% RA. Vital signs WNL.
[2018-04-22] MEDS ORDERED: CARV6.252 PO (08:04)
[2018-04-22] MEDS ORDERED: BUME1TAB8 PO (08:04)
[2018-04-22] MEDS ORDERED: RXVAN XX (08:08)
[2018-04-22] MEDS: ALLOPURINOL 100 MG TABLET PO SCH (08:51)
[2018-04-22] MEDS: BUMETANIDE 1 MG TABLET PO SCH (08:52)
[2018-04-22] MEDS: OMEGA-3 FATTY ACIDS/FISH OIL CAPSULE PO SCH (08:52)
[2018-04-22] MEDS: POTASSIUM CHLORIDE 10 MEQ TAB.PRT.SR PO SCH (08:52)
[2018-04-22] MEDS: MULTIVIT, IRON, MIN NO. 8, FA TABLET PO SCH (08:53)
[2018-04-22] MEDS: MUPIROCIN 2% OINT 22 GM TUBE NS SCH (08:54)
[2018-04-22] MEDS: AMIODARONE HCL 200 MG TABLET PO SCH (09:01)
[2018-04-22] MEDS: CARVEDILOL 6.25 MG TABLET PO SCH (09:02)
[2018-04-22 11:14] VITALS: BP 120/61
--- NOTE | 2018-04-22 15:22 | NUR ---
Patient tolerated routine morning meds. Vitals WNL. Romero in place. IV access patent. Handed patient to JEANETTE Fernandez in ARU. Report given. Transferred via hospital bed.
[2018-04-22] MEDS ORDERED: HYDR-3980 PO (16:58)
[2018-05-23] MEDS ORDERED: BUME2TAB7 PO (19:04)
== END 2018-04-22 15:04 | DRG 291 ==
LOC: ER 13:46 → TELE3 17:04 → MEDSURG3 04-21 16:05
PROVIDERS: ADMIT Internal Medicine Nephrology; ATTEND Internal Medicine
DX: I13.0 Hypertensive heart and chronic kidney disease with heart failure and stage 1 through stage 4 chronic kidney disease, or unspecified chronic kidney disease (principal); I50.43 Acute on chronic combined systolic (congestive) and diastolic (congestive) heart failure; J96.01 Acute respiratory failure with hypoxia; N18.4 Chronic kidney disease, stage 4 (severe); N39.0 Urinary tract infection, site not specified; I47.2 Ventricular tachycardia; I25.10 Atherosclerotic heart disease of native coronary artery without angina pectoris; Z95.1 Presence of aortocoronary bypass graft; I25.5 Ischemic cardiomyopathy; Z95.810 Presence of automatic (implantable) cardiac defibrillator; I25.2 Old myocardial infarction; Z88.0 Allergy status to penicillin; Z88.2 Allergy status to sulfonamides; N40.1 Benign prostatic hyperplasia with lower urinary tract symptoms; R33.9 Retention of urine, unspecified; F41.9 Anxiety disorder, unspecified; E88.9 Metabolic disorder, unspecified; D64.9 Anemia, unspecified; Z86.79 Personal history of other diseases of the circulatory system; M89.9 Disorder of bone, unspecified; I08.1 Rheumatic disorders of both mitral and tricuspid valves; B95.62 Methicillin resistant Staphylococcus aureus infection as the cause of diseases classified elsewhere
CPT/HCPCS: 36415; 70030-TC; 71045; 83735; 84100; 84156; 84300; 85025; 85730; 87077; 87086; 93005; 93307; 97110; 97116; 97165; 97530; 97535; A4217; A4663; G0378; J1940; J3370; J3490; J7050; J7060; J8499

== ENCOUNTER 2018-04-22 15:25 | Inpatient (IN) | payer MEDICARE, BC ==
[~2018-04-22] VITALS: Ht 177.8 cm; Wt 96.6 kg
[~2018-04-22 15:25] MED LIST changes: +AMIT50TA3 PO; +BUME1TAB4 PO; +BUME2TAB3 PO; +CARV6.252 PO; -FURO-151 PO; -IPRA3AMP23 IH; -LEVO500T90 PO; -METO2.5T2 PO; -METO25TA6 PO; -MEXI150C16 PO; +POTA10TA15 PO; +RXVAN XX
[2018-04-22] MEDS ORDERED: HYDR-3980 PO (16:58)
[2018-04-22 19:44] VITALS: BP_SYST 115; BP_SYST 123; BP_DIAS 61; BP_DIAS 63
[2018-04-22] MEDS ORDERED: BISACODYL 5 MG TABLET.DR PO ONE (21:00)
[2018-04-22] MEDS ORDERED: VANCOMYCIN IV 1,500 MG in IV DEXTROSE 5% 500 ML IV ONE (21:00)
[2018-04-22] MEDS ORDERED: Medication Not On Formulary EA (Atorvastatin Calcium (Lipitor) 80 MG) PO SCH (21:00)
[2018-04-22] MEDS: POTASSIUM CHLORIDE 10 MEQ TAB.PRT.SR PO SCH (21:15)
[2018-04-22] MEDS: ASPIRIN EC 81 MG TABLET.DR PO SCH (21:15)
[2018-04-22] MEDS: OMEGA-3 FATTY ACIDS/FISH OIL CAPSULE PO SCH (21:15)
[2018-04-22] MEDS: ATORVASTATIN 40 MG TABLET PO SCH (21:16)
[2018-04-22] MEDS: HYDROCODONE/APAP 10-325 MG TABLET PO PRN (21:18)
[2018-04-22] MEDS: ALPRAZOLAM 0.5 MG TABLET PO PRN (23:42)
[2018-04-23] MEDS ORDERED: ALPRAZOLAM 0.5 MG TABLET PO SCH
[2018-04-23 06:13] VITALS: BP 108/66
[2018-04-23 08:30] VITALS: BP 116/56
[2018-04-23] MEDS: CARVEDILOL 6.25 MG TABLET PO SCH ×2 (08:44→17:05)
[2018-04-23] MEDS: MULTIVIT, IRON, MIN NO. 8, FA TABLET PO SCH (08:44)
[2018-04-23] MEDS: AMIODARONE HCL 200 MG TABLET PO SCH (08:44)
[2018-04-23] MEDS: POTASSIUM CHLORIDE 10 MEQ TAB.PRT.SR PO SCH ×2 (08:44→20:06)
[2018-04-23] MEDS: OMEGA-3 FATTY ACIDS/FISH OIL CAPSULE PO SCH ×2 (08:44→20:07)
[2018-04-23] MEDS: ALLOPURINOL 100 MG TABLET PO SCH (08:44)
[2018-04-23] MEDS: BUMETANIDE 1 MG TABLET PO SCH ×2 (08:44→16:27)
[2018-04-23] MEDS ORDERED: MULTIVIT MIN PO SCH (09:00)
[2018-04-23] MEDS ORDERED: IRON PO SCH (09:00)
[2018-04-23] MEDS ORDERED: VITAMIN K PO SCH (09:00)
[2018-04-23] MEDS ORDERED: [UNRECOGNIZED DRUG - OTHER] PO SCH (09:00)
[2018-04-23] MEDS ORDERED: Medication Not On Formulary EA (Omega-3 Fatty Acids/Fish Oil (Fish Oil 1,000 Mg Softgel) PO SCH (09:00)
[2018-04-23 16:19] VITALS: BP 116/56
[2018-04-23 19:08] LABS: CARBON DIOXIDE 28 mmol/L (21-32); CHLORIDE 98 mmol/L (98-107); CREATININE 3.3 mg/dL (0.6-1.3); GLUCOSE 182 mg/dL (74-106); POTASSIUM 3.6 mmol/L (3.5-5.1); UREA NITROGEN, BLOOD 61 mg/dL (7-18); VANCOMYCIN,RANDOM 18.6 ug/mL (18.0-26.0)
[2018-04-23 20:00] VITALS: BP 111/60
[2018-04-23] MEDS: ATORVASTATIN 40 MG TABLET PO SCH (20:06)
[2018-04-23] MEDS: HYDROCODONE/APAP 10-325 MG TABLET PO PRN (20:06)
[2018-04-23] MEDS: ASPIRIN EC 81 MG TABLET.DR PO SCH (20:06)
[2018-04-23] MEDS: AMITRIPTYLINE HCL 50 MG TABLET PO SCH (20:07)
[2018-04-23] MEDS ORDERED: VANCOMYCIN IV 1,500 MG in IV DEXTROSE 5% 500 ML IV ONE (22:00)
[2018-04-24 07:18] VITALS: BP 93/43
[2018-04-24 08:33] VITALS: BP 116/43
[2018-04-24] MEDS: CARVEDILOL 6.25 MG TABLET PO SCH ×2 (09:22→17:41)
[2018-04-24] MEDS: BUMETANIDE 1 MG TABLET PO SCH ×2 (09:23→17:39)
[2018-04-24] MEDS: ALLOPURINOL 100 MG TABLET PO SCH (09:23)
[2018-04-24] MEDS: OMEGA-3 FATTY ACIDS/FISH OIL CAPSULE PO SCH ×2 (09:23→20:51)
[2018-04-24] MEDS: MULTIVIT, IRON, MIN NO. 8, FA TABLET PO SCH (09:23)
[2018-04-24] MEDS: AMIODARONE HCL 200 MG TABLET PO SCH (09:24)
[2018-04-24] MEDS: POTASSIUM CHLORIDE 10 MEQ TAB.PRT.SR PO SCH ×2 (09:24→20:53)
[2018-04-24] MEDS: HYDROCODONE/APAP 10-325 MG TABLET PO PRN ×2 (10:22→20:55)
[2018-04-24 16:27] VITALS: BP 103/52
[2018-04-24 20:23] VITALS: BP 116/57
[2018-04-24] MEDS: ASPIRIN EC 81 MG TABLET.DR PO SCH (20:52)
[2018-04-24] MEDS: ALPRAZOLAM 0.5 MG TABLET PO PRN (20:52)
[2018-04-24] MEDS: AMITRIPTYLINE HCL 50 MG TABLET PO SCH (20:52)
[2018-04-24] MEDS: ATORVASTATIN 40 MG TABLET PO SCH (20:52)
[2018-04-25 06:55] VITALS: BP 90/53
[2018-04-25 08:06] VITALS: BP 94/46
[2018-04-25] MEDS: OMEGA-3 FATTY ACIDS/FISH OIL CAPSULE PO SCH ×2 (09:48→20:49)
[2018-04-25] MEDS: AMIODARONE HCL 200 MG TABLET PO SCH (09:49)
[2018-04-25] MEDS: BUMETANIDE 1 MG TABLET PO SCH ×2 (09:49→16:56)
[2018-04-25] MEDS: MULTIVIT, IRON, MIN NO. 8, FA TABLET PO SCH (09:50)
[2018-04-25] MEDS: ALLOPURINOL 100 MG TABLET PO SCH (09:51)
[2018-04-25] MEDS: CARVEDILOL 6.25 MG TABLET PO SCH ×2 (09:53→16:56)
[2018-04-25] MEDS: POTASSIUM CHLORIDE 10 MEQ TAB.PRT.SR PO SCH ×2 (09:57→20:50)
[2018-04-25 15:59] VITALS: BP 114/63
[2018-04-25 19:35] VITALS: BP 112/54
[2018-04-25] MEDS: ASPIRIN EC 81 MG TABLET.DR PO SCH (20:50)
[2018-04-25] MEDS: AMITRIPTYLINE HCL 50 MG TABLET PO SCH (20:50)
[2018-04-25] MEDS: ATORVASTATIN 40 MG TABLET PO SCH (20:50)
[2018-04-25] MEDS: HYDROCODONE/APAP 10-325 MG TABLET PO PRN (20:56)
[2018-04-25] MEDS: ALPRAZOLAM 0.5 MG TABLET PO PRN (23:37)
[2018-04-26 05:14] VITALS: BP 94/58
[2018-04-26 07:15] LABS: BASOPHILS # (AUTO) 0.1 K/uL (0.0-8.0); BASOPHILS % (AUTO) 0.9 % (0.0-2.0); EOSINOPHILS # (AUTO) 0.5 K/uL (0.0-0.7); EOSINOPHILS % (AUTO) 6.7 % (0.0-7.0); HEMATOCRIT 29.7 % (36.7-47.1); HEMOGLOBIN 9.4 g/dL (12.5-16.3); LYMPHOCYTES # (AUTO) 1.4 K/uL (20.0-40.0); LYMPHOCYTES % (AUTO) 17.3 % (20.5-51.5); MEAN CORPUSCULAR HEMOGLOBIN 23.4 uug (23.8-33.4); MEAN CORPUSCULAR HGB CONC 32 g/dL (32.5-36.3); MEAN CORPUSCULAR VOLUME 73.7 fL (73.0-96.2); MONOCYTES # (AUTO) 0.8 K/uL (2.0-10.0); MONOCYTES % (AUTO) 10.3 % (0.0-11.0); NEUTROPHILS # (AUTO) 5.1 K/uL (1.8-8.9); NEUTROPHILS % (AUTO) 64.8 % (38.5-71.5); PLATELET COUNT (AUTO) 237 K/uL (152-348); RED BLOOD CELL COUNT(AUTO) 4.03 MIL/uL (4.06-5.63); WHITE BLOOD COUNT (AUTO) 7.9 K/uL (3.6-10.2)
[2018-04-26 07:44] LABS: ALANINE AMINOTRANSFERASE 26 U/L (16-63); ALKALINE PHOSPHATASE 94 U/L (50-136); ASPARTATE AMINOTRANSFERASE 26 U/L (15-37); BILIRUBIN,TOTAL 0.5 mg/dL (0.2-1.0); CARBON DIOXIDE 27 mmol/L (21-32); CHLORIDE 96 mmol/L (98-107); CREATININE 3.2 mg/dL (0.6-1.3); GLUCOSE 94 mg/dL (74-106); MAGNESIUM 2.1 mg/dL (1.8-2.4); PHOSPHOROUS 3.9 mg/dL (2.5-4.9); POTASSIUM 3.6 mmol/L (3.5-5.1); TOTAL PROTEIN, SERUM 6.2 g/dL (6.4-8.2); UREA NITROGEN, BLOOD 65 mg/dL (7-18); VANCOMYCIN,RANDOM 19.4 ug/mL (18.0-26.0)
[2018-04-26 08:00] VITALS: BP 112/57
[2018-04-26] MEDS: POTASSIUM CHLORIDE 10 MEQ TAB.PRT.SR PO SCH ×2 (08:43→20:28)
[2018-04-26] MEDS: AMIODARONE HCL 200 MG TABLET PO SCH (08:43)
[2018-04-26] MEDS: BUMETANIDE 1 MG TABLET PO SCH ×2 (08:43→17:17)
[2018-04-26] MEDS: MULTIVIT, IRON, MIN NO. 8, FA TABLET PO SCH (08:43)
[2018-04-26] MEDS: ALLOPURINOL 100 MG TABLET PO SCH (08:43)
[2018-04-26] MEDS: CARVEDILOL 6.25 MG TABLET PO SCH ×2 (08:44→17:19)
[2018-04-26] MEDS: HYDROCODONE/APAP 10-325 MG TABLET PO PRN ×2 (08:45→20:33)
[2018-04-26] MEDS: OMEGA-3 FATTY ACIDS/FISH OIL CAPSULE PO SCH ×2 (08:46→20:27)
[2018-04-26 16:43] VITALS: BP 91/49
[2018-04-26 19:45] VITALS: BP 118/60
[2018-04-26 20:20] VITALS: BP 118/60
[2018-04-26] MEDS: ATORVASTATIN 40 MG TABLET PO SCH (20:27)
[2018-04-26] MEDS: ASPIRIN EC 81 MG TABLET.DR PO SCH (20:28)
[2018-04-26] MEDS: AMITRIPTYLINE HCL 50 MG TABLET PO SCH (20:28)
[2018-04-26] MEDS: ALPRAZOLAM 0.5 MG TABLET PO PRN (20:32)
[2018-04-27] MEDS: HYDROCODONE/APAP 10-325 MG TABLET PO PRN (02:20)
[2018-04-27 05:52] VITALS: BP 104/59
[2018-04-27 08:00] VITALS: BP 119/62
[2018-04-27] MEDS: POTASSIUM CHLORIDE 10 MEQ TAB.PRT.SR PO SCH (08:00)
[2018-04-27] MEDS: MULTIVIT, IRON, MIN NO. 8, FA TABLET PO SCH (08:00)
[2018-04-27] MEDS: ALLOPURINOL 100 MG TABLET PO SCH (08:00)
[2018-04-27] MEDS: BUMETANIDE 1 MG TABLET PO SCH (08:00)
[2018-04-27] MEDS: OMEGA-3 FATTY ACIDS/FISH OIL CAPSULE PO SCH (08:01)
[2018-04-27 08:04] VITALS: BP 119/62
[2018-04-27] MEDS: AMIODARONE HCL 200 MG TABLET PO SCH (08:04)
[2018-04-27] MEDS: CARVEDILOL 6.25 MG TABLET PO SCH (08:04)
== END 2018-04-27 10:00 | disposition home health service (06) | DRG 291 ==
PROVIDERS: ADMIT Physical Medicine & Rehabilitation Pain Medicine; ATTEND Physical Medicine & Rehabilitation Pain Medicine
DX: I13.0 Hypertensive heart and chronic kidney disease with heart failure and stage 1 through stage 4 chronic kidney disease, or unspecified chronic kidney disease (principal); I50.43 Acute on chronic combined systolic (congestive) and diastolic (congestive) heart failure; N39.0 Urinary tract infection, site not specified; T83.511A Infection and inflammatory reaction due to indwelling urethral catheter, initial encounter; N18.4 Chronic kidney disease, stage 4 (severe); I25.10 Atherosclerotic heart disease of native coronary artery without angina pectoris; A49.02 Methicillin resistant Staphylococcus aureus infection, unspecified site; Z95.1 Presence of aortocoronary bypass graft; I42.9 Cardiomyopathy, unspecified; Z95.810 Presence of automatic (implantable) cardiac defibrillator; N40.0 Benign prostatic hyperplasia without lower urinary tract symptoms; R53.1 Weakness; D64.9 Anemia, unspecified; E88.9 Metabolic disorder, unspecified; F41.9 Anxiety disorder, unspecified; I05.9 Rheumatic mitral valve disease, unspecified; I25.5 Ischemic cardiomyopathy; Y92.009 Unspecified place in unspecified non-institutional (private) residence as the place of occurrence of the external cause; Y84.6 Urinary catheterization as the cause of abnormal reaction of the patient, or of later complication, without mention of misadventure at the time of the procedure; N40.1 Benign prostatic hyperplasia with lower urinary tract symptoms; Z88.0 Allergy status to penicillin; Z88.2 Allergy status to sulfonamides
CPT/HCPCS: 36415; 83735; 84100; 85025; 92523; 92526; 92610; 97110; 97112; 97116; 97165; 97530; 97535; A4663; J3370; J7030; J7050; J7060; J8499

== ENCOUNTER 2018-04-28 17:06 | Emergency (ER) | payer MEDICARE, BC ==
[~2018-04-28] VITALS: Ht 175.3 cm; Wt 101.6 kg
[~2018-04-28 17:06] MED LIST changes: -BUME2TAB3 PO; +HYDR-3980 PO; -HYDR-4354 PO
--- NOTE | 2018-04-28 18:07 | NUR ---
PT WAS EVALUATED BY DR MCKEON. PT WAS D/C'd TO HOME. D/C INSTRUCTIONS GIVEN TO THE PT.
[2018-04-28 18:08] VITALS: BP 146/88
== END 2018-04-28 18:12 | disposition home or self-care (01) ==
LOC: ER 17:08
DX: T83.098A Other mechanical complication of other urinary catheter, initial encounter (principal); N40.1 Benign prostatic hyperplasia with lower urinary tract symptoms; R33.8 Other retention of urine; I50.9 Heart failure, unspecified; I25.2 Old myocardial infarction; I25.10 Atherosclerotic heart disease of native coronary artery without angina pectoris; Z95.0 Presence of cardiac pacemaker; Z95.1 Presence of aortocoronary bypass graft; Z88.0 Allergy status to penicillin; Z88.2 Allergy status to sulfonamides; Z79.82 Long term (current) use of aspirin; Z79.899 Other long term (current) drug therapy
CPT/HCPCS: 51702; A4217; A4663

== ENCOUNTER 2018-05-23 17:34 | Inpatient (IN) | payer MEDICARE, BC ==
[~2018-05-23] VITALS: Ht 177.8 cm; Wt 99.3 kg
[2018-05-23 18:12] LABS: BASOPHILS # (AUTO) 0.1 K/uL (0.0-8.0); BASOPHILS % (AUTO) 0.7 % (0.0-2.0); EOSINOPHILS # (AUTO) 0.2 K/uL (0.0-0.7); EOSINOPHILS % (AUTO) 1.9 % (0.0-7.0); HEMATOCRIT 33.4 % (36.7-47.1); HEMOGLOBIN 10.3 g/dL (12.5-16.3); LYMPHOCYTES # (AUTO) 1.1 K/uL (20.0-40.0); LYMPHOCYTES % (AUTO) 13.8 % (20.5-51.5); MEAN CORPUSCULAR HEMOGLOBIN 24.1 uug (23.8-33.4); MEAN CORPUSCULAR HGB CONC 31 g/dL (32.5-36.3); MEAN CORPUSCULAR VOLUME 78.4 fL (73.0-96.2); MONOCYTES # (AUTO) 0.5 K/uL (2.0-10.0); MONOCYTES % (AUTO) 6.8 % (0.0-11.0); NEUTROPHILS # (AUTO) 6.2 K/uL (1.8-8.9); NEUTROPHILS % (AUTO) 76.8 % (38.5-71.5); PLATELET COUNT (AUTO) 258 K/uL (152-348); RED BLOOD CELL COUNT(AUTO) 4.26 MIL/uL (4.06-5.63); WHITE BLOOD COUNT (AUTO) 8.1 K/uL (3.6-10.2)
[2018-05-23 18:20] LABS: CARBON DIOXIDE 24 mmol/L (21-32); CHLORIDE 104 mmol/L (98-107); CREATININE 3.4 mg/dL (0.6-1.3); GLUCOSE 153 mg/dL (74-106); POTASSIUM 5.1 mmol/L (3.5-5.1); UREA NITROGEN, BLOOD 52 mg/dL (7-18)
[2018-05-23 18:32] LABS: ALANINE AMINOTRANSFERASE 41 U/L (16-63); ALKALINE PHOSPHATASE 140 U/L (50-136); ASPARTATE AMINOTRANSFERASE 25 U/L (15-37); BILIRUBIN,DIRECT 0.3 mg/dL (0.0-0.2); BILIRUBIN,TOTAL 0.6 mg/dL (0.2-1.0); TOTAL PROTEIN, SERUM 6.8 g/dL (6.4-8.2)
[2018-05-23] MEDS ORDERED: FUROSEMIDE 20 MG/2 ML VIAL IV ONE (19:00)
[2018-05-23] MEDS ORDERED: BUME2TAB3 PO (19:04)
[2018-05-23] MEDS ORDERED: FUROSEMIDE 40 MG/4 ML VIAL ONE (19:20)
[2018-05-23] MEDS ORDERED: FUROSEMIDE 20 MG/2 ML VIAL ONE (19:20)
[2018-05-23] MEDS ORDERED: HYDROCODONE/APAP 5-325MG TABLET ONE (19:51)
[2018-05-23] MEDS ORDERED: HYDROCODONE/APAP 5-325MG TABLET PO ONE (20:00)
[2018-05-23 21:04] VITALS: BP 132/87
[2018-05-24] MEDS: ATORVASTATIN 40 MG TABLET PO SCH ×2 (00:04→20:36)
[2018-05-24] MEDS: ALPRAZOLAM 0.5 MG TABLET PO PRN ×2 (00:46→20:39)
[2018-05-24 01:11] VITALS: BP 140/62
[2018-05-24 04:39] VITALS: BP 135/83
[2018-05-24 05:48] LABS: BASOPHILS # (AUTO) 0.1 K/uL (0.0-8.0); BASOPHILS % (AUTO) 0.9 % (0.0-2.0); EOSINOPHILS # (AUTO) 0.3 K/uL (0.0-0.7); EOSINOPHILS % (AUTO) 3.2 % (0.0-7.0); HEMATOCRIT 32.6 % (36.7-47.1); HEMOGLOBIN 10.2 g/dL (12.5-16.3); LYMPHOCYTES # (AUTO) 1.4 K/uL (20.0-40.0); LYMPHOCYTES % (AUTO) 16.9 % (20.5-51.5); MEAN CORPUSCULAR HEMOGLOBIN 24.6 uug (23.8-33.4); MEAN CORPUSCULAR HGB CONC 31 g/dL (32.5-36.3); MEAN CORPUSCULAR VOLUME 78.9 fL (73.0-96.2); MONOCYTES # (AUTO) 0.8 K/uL (2.0-10.0); MONOCYTES % (AUTO) 9.6 % (0.0-11.0); NEUTROPHILS # (AUTO) 5.9 K/uL (1.8-8.9); NEUTROPHILS % (AUTO) 69.4 % (38.5-71.5); PLATELET COUNT (AUTO) 240 K/uL (152-348); RED BLOOD CELL COUNT(AUTO) 4.13 MIL/uL (4.06-5.63); WHITE BLOOD COUNT (AUTO) 8.5 K/uL (3.6-10.2)
[2018-05-24 05:50] LABS: CARBON DIOXIDE 26 mmol/L (21-32); CHLORIDE 105 mmol/L (98-107); CREATININE 3.4 mg/dL (0.6-1.3); GLUCOSE 116 mg/dL (74-106); MAGNESIUM 2.3 mg/dL (1.8-2.4); POTASSIUM 4.7 mmol/L (3.5-5.1); UREA NITROGEN, BLOOD 53 mg/dL (7-18)
[2018-05-24] MEDS: FUROSEMIDE 40 MG/4 ML VIAL IV SCH ×2 (08:08→16:40)
[2018-05-24 11:34] VITALS: BP 127/71
[2018-05-24] MEDS ORDERED: METOLAZONE 5 MG TABLET PO ONE (12:15)
[2018-05-24] MEDS ORDERED: HYDROCODONE/APAP 10-325 MG TABLET PO PRN (13:00)
[2018-05-24] MEDS ORDERED: ALPRAZOLAM 0.5 MG TABLET PO PRN (13:00)
[2018-05-24] MEDS: AMIODARONE HCL 200 MG TABLET PO SCH (14:03)
[2018-05-24] MEDS: ALLOPURINOL 100 MG TABLET PO SCH (14:03)
[2018-05-24 15:40] VITALS: BP 127/65
[2018-05-24] MEDS: BUMETANIDE 1 MG TABLET PO SCH (16:40)
[2018-05-24] MEDS ORDERED: Medication Not On Formulary EA (Omega-3 Fatty Acids/Fish Oil (Fish Oil 1,000 Mg Softgel) PO SCH (17:00)
[2018-05-24] MEDS: CARVEDILOL 6.25 MG TABLET PO SCH (17:34)
[2018-05-24] MEDS: AMITRIPTYLINE HCL 50 MG TABLET PO SCH (17:34)
[2018-05-24] MEDS: POTASSIUM CHLORIDE 10 MEQ TAB.PRT.SR PO SCH (17:34)
[2018-05-24] MEDS: HYDROCODONE/APAP 10-325 MG TABLET PO PRN (17:59)
[2018-05-24 20:02] VITALS: BP 131/71
[2018-05-24] MEDS: ASPIRIN EC 81 MG TABLET.DR PO SCH (20:36)
[2018-05-24] MEDS: OMEGA-3 FATTY ACIDS/FISH OIL CAPSULE PO SCH (20:36)
[2018-05-24] MEDS ORDERED: ATORVASTATIN 40 MG TABLET PO SCH (21:00)
[2018-05-24] MEDS ORDERED: Medication Not On Formulary EA (Atorvastatin Calcium (Lipitor) 80 MG) PO SCH (21:00)
[2018-05-25 00:44] VITALS: BP 125/62
[2018-05-25 04:32] VITALS: BP 130/62
[2018-05-25 06:26] LABS: BASOPHILS # (AUTO) 0.1 K/uL (0.0-8.0); BASOPHILS % (AUTO) 0.7 % (0.0-2.0); EOSINOPHILS # (AUTO) 0.3 K/uL (0.0-0.7); EOSINOPHILS % (AUTO) 4.9 % (0.0-7.0); HEMATOCRIT 31.9 % (36.7-47.1); HEMOGLOBIN 9.9 g/dL (12.5-16.3); LYMPHOCYTES # (AUTO) 1.4 K/uL (20.0-40.0); LYMPHOCYTES % (AUTO) 20.1 % (20.5-51.5); MEAN CORPUSCULAR HEMOGLOBIN 24.5 uug (23.8-33.4); MEAN CORPUSCULAR HGB CONC 31 g/dL (32.5-36.3); MEAN CORPUSCULAR VOLUME 79.3 fL (73.0-96.2); MONOCYTES # (AUTO) 0.6 K/uL (2.0-10.0); MONOCYTES % (AUTO) 8.6 % (0.0-11.0); NEUTROPHILS # (AUTO) 4.6 K/uL (1.8-8.9); NEUTROPHILS % (AUTO) 65.7 % (38.5-71.5); PLATELET COUNT (AUTO) 238 K/uL (152-348); RED BLOOD CELL COUNT(AUTO) 4.02 MIL/uL (4.06-5.63); WHITE BLOOD COUNT (AUTO) 7.1 K/uL (3.6-10.2)
[2018-05-25 06:29] LABS: CARBON DIOXIDE 29 mmol/L (21-32); CHLORIDE 106 mmol/L (98-107); CREATININE 3.1 mg/dL (0.6-1.3); GLUCOSE 87 mg/dL (74-106); MAGNESIUM 2.2 mg/dL (1.8-2.4); PHOSPHOROUS 4.1 mg/dL (2.5-4.9); UREA NITROGEN, BLOOD 51 mg/dL (7-18)
[2018-05-25] MEDS: OMEGA-3 FATTY ACIDS/FISH OIL CAPSULE PO SCH ×2 (08:41→19:51)
[2018-05-25] MEDS: AMIODARONE HCL 200 MG TABLET PO SCH (08:41)
[2018-05-25] MEDS: FUROSEMIDE 40 MG/4 ML VIAL IV SCH (08:42)
[2018-05-25] MEDS: ALLOPURINOL 100 MG TABLET PO SCH (08:42)
[2018-05-25] MEDS: POTASSIUM CHLORIDE 10 MEQ TAB.PRT.SR PO SCH ×2 (08:42→17:29)
[2018-05-25] MEDS: CARVEDILOL 6.25 MG TABLET PO SCH ×2 (08:42→17:30)
[2018-05-25] MEDS: BUMETANIDE 1 MG TABLET PO SCH ×2 (08:42→17:29)
[2018-05-25] MEDS: MULTIVITAMINS,THERAPEUTIC TABLET PO SCH (08:42)
[2018-05-25] MEDS ORDERED: VITAMIN K PO SCH (09:00)
[2018-05-25] MEDS ORDERED: MULTIVIT MIN PO SCH (09:00)
[2018-05-25] MEDS ORDERED: [UNRECOGNIZED DRUG - OTHER] PO SCH (09:00)
[2018-05-25] MEDS ORDERED: IRON PO SCH (09:00)
[2018-05-25 11:03] VITALS: BP 131/75
[2018-05-25] MEDS ORDERED: METOLAZONE 5 MG TABLET PO ONE (12:00)
[2018-05-25 15:23] VITALS: BP 126/69
[2018-05-25] MEDS: AMITRIPTYLINE HCL 50 MG TABLET PO SCH (17:29)
[2018-05-25] MEDS: ATORVASTATIN 40 MG TABLET PO SCH (19:52)
[2018-05-25] MEDS: HYDROCODONE/APAP 10-325 MG TABLET PO PRN (19:53)
[2018-05-25] MEDS: ALPRAZOLAM 0.5 MG TABLET PO PRN (19:53)
[2018-05-25] MEDS: ASPIRIN EC 81 MG TABLET.DR PO SCH (19:54)
[2018-05-25 20:33] VITALS: BP 130/69
[2018-05-26 00:59] VITALS: BP 128/62
[2018-05-26 04:00] VITALS: BP 130/69
[2018-05-26 06:49] LABS: BASOPHILS # (AUTO) 0.1 K/uL (0.0-8.0); BASOPHILS % (AUTO) 1.4 % (0.0-2.0); EOSINOPHILS # (AUTO) 0.3 K/uL (0.0-0.7); EOSINOPHILS % (AUTO) 5.3 % (0.0-7.0); HEMATOCRIT 30.9 % (36.7-47.1); HEMOGLOBIN 9.6 g/dL (12.5-16.3); LYMPHOCYTES # (AUTO) 1.1 K/uL (20.0-40.0); MEAN CORPUSCULAR HEMOGLOBIN 24.3 uug (23.8-33.4); MEAN CORPUSCULAR HGB CONC 31 g/dL (32.5-36.3); MEAN CORPUSCULAR VOLUME 78.3 fL (73.0-96.2); MONOCYTES # (AUTO) 0.5 K/uL (2.0-10.0); NEUTROPHILS # (AUTO) 4.2 K/uL (1.8-8.9); NEUTROPHILS % (AUTO) 67.3 % (38.5-71.5); PLATELET COUNT (AUTO) 226 K/uL (152-348); RED BLOOD CELL COUNT(AUTO) 3.95 MIL/uL (4.06-5.63); WHITE BLOOD COUNT (AUTO) 6.3 K/uL (3.6-10.2)
[2018-05-26 07:02] LABS: IRON, SERUM 17 ug/dL (50-175)
[2018-05-26 07:22] LABS: CARBON DIOXIDE 28 mmol/L (21-32); CHLORIDE 103 mmol/L (98-107); CREATININE 3.1 mg/dL (0.6-1.3); FERRITIN 65 ng/mL (26-388); GLUCOSE 104 mg/dL (74-106); MAGNESIUM 1.9 mg/dL (1.8-2.4); PHOSPHOROUS 3.9 mg/dL (2.5-4.9); POTASSIUM 3.5 mmol/L (3.5-5.1); UREA NITROGEN, BLOOD 52 mg/dL (7-18)
[2018-05-26] MEDS: POTASSIUM CHLORIDE 10 MEQ TAB.PRT.SR PO SCH ×2 (08:26→17:08)
[2018-05-26] MEDS: OMEGA-3 FATTY ACIDS/FISH OIL CAPSULE PO SCH ×2 (08:26→20:34)
[2018-05-26] MEDS: ALLOPURINOL 100 MG TABLET PO SCH (08:26)
[2018-05-26] MEDS: MULTIVITAMINS,THERAPEUTIC TABLET PO SCH (08:27)
[2018-05-26] MEDS: BUMETANIDE 1 MG TABLET PO SCH ×2 (08:27→16:17)
[2018-05-26] MEDS: CARVEDILOL 6.25 MG TABLET PO SCH ×2 (08:28→17:09)
[2018-05-26] MEDS: AMIODARONE HCL 200 MG TABLET PO SCH (08:28)
[2018-05-26] MEDS ORDERED: POTASSIUM CHLORIDE 10 MEQ TAB.PRT.SR PO SCH (11:00)
[2018-05-26] MEDS: CLOTRIMAZOLE/BETAMET DIPROP CREAM 15 GM TUBE TOP SCH ×2 (11:02→20:35)
[2018-05-26] MEDS ORDERED: POLYVINYL ALCOHOL OPHT DROPS 15 ML BOTTLE EACHEYE PRN (11:30)
[2018-05-26 11:38] VITALS: BP 113/62
[2018-05-26 15:51] VITALS: BP 119/67
[2018-05-26] MEDS: AMITRIPTYLINE HCL 50 MG TABLET PO SCH (17:08)
[2018-05-26 19:11] VITALS: BP 106/63
[2018-05-26] MEDS: ATORVASTATIN 40 MG TABLET PO SCH (20:34)
[2018-05-26] MEDS: ASPIRIN EC 81 MG TABLET.DR PO SCH (20:34)
[2018-05-26] MEDS: ALPRAZOLAM 0.5 MG TABLET PO PRN (20:34)
[2018-05-27] MEDS: HYDROCODONE/APAP 10-325 MG TABLET PO PRN (00:07)
[2018-05-27 03:13] VITALS: BP 114/65
[2018-05-27 08:11] VITALS: BP 135/75
[2018-05-27] MEDS: CARVEDILOL 6.25 MG TABLET PO SCH (08:11)
[2018-05-27] MEDS: BUMETANIDE 1 MG TABLET PO SCH (08:12)
[2018-05-27] MEDS: ALLOPURINOL 100 MG TABLET PO SCH (08:12)
[2018-05-27] MEDS: OMEGA-3 FATTY ACIDS/FISH OIL CAPSULE PO SCH (08:12)
[2018-05-27] MEDS: MULTIVITAMINS,THERAPEUTIC TABLET PO SCH (08:12)
[2018-05-27] MEDS: POTASSIUM CHLORIDE 10 MEQ TAB.PRT.SR PO SCH (08:12)
[2018-05-27] MEDS: AMIODARONE HCL 200 MG TABLET PO SCH (08:12)
[2018-05-27] MEDS: CLOTRIMAZOLE/BETAMET DIPROP CREAM 15 GM TUBE TOP SCH (08:13)
== END 2018-05-27 11:05 | disposition home health service (06) | DRG 291 ==
LOC: ER 17:35 → TELE3 20:07 → MEDSURG3 05-26 14:41
PROVIDERS: ADMIT Internal Medicine; ATTEND Internal Medicine Nephrology
DX: I13.0 Hypertensive heart and chronic kidney disease with heart failure and stage 1 through stage 4 chronic kidney disease, or unspecified chronic kidney disease (principal); I50.43 Acute on chronic combined systolic (congestive) and diastolic (congestive) heart failure; J96.01 Acute respiratory failure with hypoxia; N18.4 Chronic kidney disease, stage 4 (severe); I47.2 Ventricular tachycardia; I25.5 Ischemic cardiomyopathy; I25.10 Atherosclerotic heart disease of native coronary artery without angina pectoris; Z98.61 Coronary angioplasty status; Z95.1 Presence of aortocoronary bypass graft; Z95.810 Presence of automatic (implantable) cardiac defibrillator; F41.9 Anxiety disorder, unspecified; E88.9 Metabolic disorder, unspecified; N40.1 Benign prostatic hyperplasia with lower urinary tract symptoms; R33.8 Other retention of urine; Z86.79 Personal history of other diseases of the circulatory system; D64.9 Anemia, unspecified; I25.2 Old myocardial infarction; M89.9 Disorder of bone, unspecified
CPT/HCPCS: 36415; 70030-TC; 71045; 83550; 83735; 84100; 85025; 85730; 93005; 97116; 97530; A4663; G0378; J1940; J8499

== ENCOUNTER 2020-01-31 13:14 | Inpatient (IN) | payer MEDICARE, BC ==
[~2020-01-31] VITALS: Ht 175.3 cm; Wt 99.8 kg
[~2020-01-31 13:14] MED LIST changes: -AMIO200T4 PO; +AMIO200T5 PO; -BUME1TAB4 PO; +BUME1TAB8 PO; +BUME2TAB7 PO; -RXVAN XX
--- NOTE | 2020-01-31 13:18 | NUR ---
PT WITH PARAMEDICS IN THE HALLWAY - ER BEDS OCCUPIED TO FULL CAPACITY AT THIS TIME.
[2020-01-31 14:33] LABS: BASOPHILS # (AUTO) 0.1 K/uL (0.0-8.0); BASOPHILS % (AUTO) 1.4 % (0.0-2.0); EOSINOPHILS # (AUTO) 0.1 K/uL (0.0-0.7); EOSINOPHILS % (AUTO) 1.4 % (0.0-7.0); HEMATOCRIT 29.2 % (36.7-47.1); HEMOGLOBIN 9.6 g/dL (12.5-16.3); LYMPHOCYTES # (AUTO) 0.5 K/uL (20.0-40.0); MEAN CORPUSCULAR HEMOGLOBIN 33.9 uug (23.8-33.4); MEAN CORPUSCULAR HGB CONC 33 g/dL (32.5-36.3); MEAN CORPUSCULAR VOLUME 103.5 fL (73.0-96.2); MONOCYTES # (AUTO) 0.4 K/uL (2.0-10.0); MONOCYTES % (AUTO) 6.6 % (0.0-11.0); NEUTROPHILS # (AUTO) 4.5 K/uL (1.8-8.9); NEUTROPHILS % (AUTO) 81.6 % (38.5-71.5); PLATELET COUNT (AUTO) 100 K/uL (152-348); RED BLOOD CELL COUNT(AUTO) 2.83 MIL/uL (4.06-5.63); WHITE BLOOD COUNT (AUTO) 5.5 K/uL (3.6-10.2)
[2020-01-31 14:57] LABS: ALANINE AMINOTRANSFERASE 87 U/L (16-63); ALKALINE PHOSPHATASE 87 U/L (50-136); ASPARTATE AMINOTRANSFERASE 73 U/L (15-37); BILIRUBIN,TOTAL 0.5 mg/dL (0.2-1.0); CARBON DIOXIDE 23 mmol/L (21-32); CHLORIDE 91 mmol/L (98-107); GLUCOSE 89 mg/dL (74-106); POTASSIUM 5.2 mmol/L (3.5-5.1); TOTAL PROTEIN, SERUM 6.9 g/dL (6.4-8.2); UREA NITROGEN, BLOOD 68 mg/dL (7-18)
[2020-01-31 14:59] LABS: CREATININE 11.2 mg/dL (0.6-1.3)
--- NOTE | 2020-01-31 15:03 | NUR ---
PT REMAINS UNDER TELECOMMUNICATIONS ENGINEER CARE R/T NO BED AVAILABLE IN ER.
--- NOTE | 2020-01-31 15:55 | NUR ---
Pt moved to Room 5b.
--- NOTE | 2020-01-31 17:25 | NUR ---
BERNARD CARRASCO spoke to Barbara Acuña NP for admin.
[2020-01-31] MEDS ORDERED: CARVEDILOL 6.25 MG TABLET PO SCH (18:00)
[2020-01-31] MEDS ORDERED: ACETAMINOPHEN 650 MG SUPP.RECT RC PRN (18:45)
[2020-01-31] MEDS ORDERED: ALBUTEROL SULFATE 8 GM HFA.AER.AD IH PRN (18:45)
[2020-01-31] MEDS ORDERED: ONDANSETRON 4 MG/2 ML VIAL IV PRN (18:45)
--- NOTE | 2020-01-31 19:59 | NUR ---
PT IN COVID ISOLATION ROOM, AWAITING FOR FLOOR BED. DEBIED ANY DESTRESS.
[2020-01-31] MEDS ORDERED: ASPIRIN 81 MG TAB.CHEW ONE ×2 (20:36→20:42)
[2020-01-31] MEDS: ASPIRIN EC 81 MG TABLET.DR PO SCH (20:40)
--- NOTE | 2020-01-31 21:43 | NUR ---
PT ASLEEP,EYES CLOSED, MONITOR SHOWS NSR, PO2=95% ON 2 LO2/NC
[2020-02-01] MEDS ORDERED: ALPRAZOLAM 0.25 MG TABLET PO ONE (00:45)
[2020-02-01] MEDS ORDERED: GABAPENTIN 300 MG CAPSULE PO ONE (00:45)
--- NOTE | 2020-02-01 00:45 | NUR ---
PT REQUESTED GABAPENTIN 300MG AND XANAX 0.5MG FOR TONITE, SPOKE TO DU XIE AND RESEVED TELEPHONE ORDER FOR GABAPENTIN 300MG PO AND XANAX 0.5MG PO X1 FOR TONITE. PT RECEIVED MEDICATIONS.
[2020-02-01] MEDS ORDERED: ALPRAZOLAM 0.5 MG TABLET ONE (00:46)
[2020-02-01] MEDS ORDERED: GABAPENTIN 300 MG CAPSULE ONE (00:47)
--- NOTE | 2020-02-01 07:14 | NUR ---
SBAR REPORT TO LACHELLE REID
--- NOTE | 2020-02-01 07:20 | NUR ---
Received report from Medhat REID. Pt resting with NAD noted at this time. Pt is a pending tele admission.
[2020-02-01 07:57] LABS: BASOPHILS % (AUTO) 0.2 % (0.0-2.0); EOSINOPHILS % (AUTO) 0.4 % (0.0-7.0); HEMATOCRIT 27.3 % (36.7-47.1); HEMOGLOBIN 9.3 g/dL (12.5-16.3); LYMPHOCYTES # (AUTO) 0.6 K/uL (20.0-40.0); LYMPHOCYTES % (AUTO) 13.3 % (20.5-51.5); MEAN CORPUSCULAR HEMOGLOBIN 35.2 uug (23.8-33.4); MEAN CORPUSCULAR HGB CONC 34 g/dL (32.5-36.3); MONOCYTES # (AUTO) 0.5 K/uL (2.0-10.0); MONOCYTES % (AUTO) 9.9 % (0.0-11.0); NEUTROPHILS # (AUTO) 3.6 K/uL (1.8-8.9); NEUTROPHILS % (AUTO) 76.2 % (38.5-71.5); PLATELET COUNT (AUTO) 98 K/uL (152-348); RED BLOOD CELL COUNT(AUTO) 2.65 MIL/uL (4.06-5.63); WHITE BLOOD COUNT (AUTO) 4.8 K/uL (3.6-10.2)
[2020-02-01 08:41] LABS: ALANINE AMINOTRANSFERASE 71 U/L (16-63); ALKALINE PHOSPHATASE 87 U/L (50-136); ASPARTATE AMINOTRANSFERASE 47 U/L (15-37); BILIRUBIN,TOTAL 0.5 mg/dL (0.2-1.0); CARBON DIOXIDE 26 mmol/L (21-32); CHLORIDE 93 mmol/L (98-107); FERRITIN 3614 ng/mL (26-388); GLUCOSE 96 mg/dL (74-106); LACTATE DEHYDROGENASE 243 U/L (85-227); TOTAL PROTEIN, SERUM 6.8 g/dL (6.4-8.2)
[2020-02-01 08:51] LABS: CREATININE 13.2 mg/dL (0.6-1.3); UREA NITROGEN, BLOOD 81 mg/dL (7-18)
[2020-02-01] MEDS ORDERED: AMIODARONE HCL 200 MG TABLET ONE (09:01)
--- NOTE | 2020-02-01 09:10 | NUR ---
AM MEDS ADM, PT C/O HEADACHE, MEDICATED WITH TYLENOL ORDERED PRN.
[2020-02-01] MEDS ORDERED: ACETAMINOPHEN 325 MG TABLET ONE (09:16)
[2020-02-01] MEDS: BUMETANIDE 1 MG TABLET PO SCH ×2 (09:20→17:00)
[2020-02-01] MEDS: ALLOPURINOL 100 MG TABLET PO SCH (09:20)
[2020-02-01] MEDS: AMIODARONE HCL 200 MG TABLET PO SCH (09:20)
[2020-02-01] MEDS: ACETAMINOPHEN 325 MG TABLET PO PRN (09:20)
--- NOTE | 2020-02-01 09:45 | NUR ---
Pt is sitting in [facility] and eating breakfast, pt states his headache has improved. NAD noted at this time.
--- NOTE | 2020-02-01 09:58 | NUR ---
Pt states he is suppose to get dialysis today, spoke with who stated he is aware.
--- NOTE | 2020-02-01 12:30 | NUR ---
Pt given lunch tray. NAD noted at this time.
--- NOTE | 2020-02-01 15:30 | NUR ---
Per ER admitting they received a telephone call from the dialysis nurse who stated he will be in later today to do dialysis.
[2020-02-01] MEDS: MULTIVITAMINS,THERAPEUTIC TABLET PO SCH (16:12)
--- NOTE | 2020-02-01 17:00 | NUR ---
Pt resting with NAD noted. Pt's son called and was updated on pt's condition.
[2020-02-01] MEDS ORDERED: BUMETANIDE 1 MG TABLET ONE (18:03)
--- NOTE | 2020-02-01 18:40 | NUR ---
Pt given dinner tray, NAD noted. Pending tele admission.
--- NOTE | 2020-02-01 19:00 | NUR ---
Received report from JEANETTE Cuevas for continuity of care. Patient pending admission, and patient to be dialized tonight according to Masno.
--- NOTE | 2020-02-01 20:20 | NUR ---
Dialysis nurse here in ED to perform bedside hemodialysis on patient.
[2020-02-01] MEDS: ATORVASTATIN 40 MG TABLET PO SCH (21:00)
[2020-02-01] MEDS: ASPIRIN EC 81 MG TABLET.DR PO SCH (21:00)
[2020-02-02] MEDS ORDERED: ACETAMINOPHEN 325 MG TABLET ONE (01:38)
--- NOTE | 2020-02-02 04:00 | NUR ---
Patient transported to room 3A for better view of monitor.
[2020-02-02 07:53] LABS: ALANINE AMINOTRANSFERASE 73 U/L (16-63); ALKALINE PHOSPHATASE 81 U/L (50-136); ASPARTATE AMINOTRANSFERASE 84 U/L (15-37); BILIRUBIN,TOTAL 0.6 mg/dL (0.2-1.0); CARBON DIOXIDE 23 mmol/L (21-32); CHLORIDE 98 mmol/L (98-107); GLUCOSE 113 mg/dL (74-106); MAGNESIUM 2.3 mg/dL (1.8-2.4); PHOSPHOROUS 5.7 mg/dL (2.5-4.9); POTASSIUM 5.3 mmol/L (3.5-5.1); UREA NITROGEN, BLOOD 70 mg/dL (7-18)
[2020-02-02] MEDS: CARVEDILOL 3.125 MG TABLET PO SCH ×2 (08:00→18:02)
[2020-02-02 08:16] LABS: CREATININE 11.4 mg/dL (0.6-1.3)
[2020-02-02 08:25] LABS: BASOPHILS % (AUTO) 0.2 % (0.0-2.0); HEMATOCRIT 26.9 % (36.7-47.1); HEMOGLOBIN 9.3 g/dL (12.5-16.3); LYMPHOCYTES # (AUTO) 0.3 K/uL (20.0-40.0); LYMPHOCYTES % (AUTO) 6.6 % (20.5-51.5); MEAN CORPUSCULAR HEMOGLOBIN 35.5 uug (23.8-33.4); MEAN CORPUSCULAR HGB CONC 35 g/dL (32.5-36.3); MEAN CORPUSCULAR VOLUME 102.8 fL (73.0-96.2); MONOCYTES # (AUTO) 0.4 K/uL (2.0-10.0); MONOCYTES % (AUTO) 9.3 % (0.0-11.0); NEUTROPHILS # (AUTO) 3.6 K/uL (1.8-8.9); NEUTROPHILS % (AUTO) 83.9 % (38.5-71.5); PLATELET COUNT (AUTO) 87 K/uL (152-348); RED BLOOD CELL COUNT(AUTO) 2.62 MIL/uL (4.06-5.63); WHITE BLOOD COUNT (AUTO) 4.3 K/uL (3.6-10.2)
[2020-02-02] MEDS: OMEGA-3 FATTY ACIDS/FISH OIL CAPSULE PO SCH ×2 (09:00→17:21)
[2020-02-02] MEDS: ALLOPURINOL 100 MG TABLET PO SCH (09:00)
[2020-02-02] MEDS: MULTIVITAMINS,THERAPEUTIC TABLET PO SCH (09:00)
[2020-02-02] MEDS ORDERED: CARVEDILOL 3.125 MG TABLET ONE ×2 (09:00→18:02)
--- NOTE | 2020-02-02 09:50 | NUR ---
PHARMACY CALLED FOLLOW UP AM MED. PER PHARMACY WILL SEND.
[2020-02-02] MEDS: AMIODARONE HCL 200 MG TABLET PO SCH (10:00)
[2020-02-02] MEDS: ASCORBIC ACID 500 MG TABLET PO SCH (10:01)
[2020-02-02] MEDS ORDERED: AMIODARONE HCL 200 MG TABLET ONE (10:02)
[2020-02-02] MEDS ORDERED: ALLOPURINOL 100 MG TABLET ONE (10:02)
[2020-02-02] MEDS ORDERED: ASCORBIC ACID 500 MG TABLET ONE (10:05)
[2020-02-02] MEDS: CHOLECALCIFEROL 1,000 UNIT TABLET PO SCH (10:39)
--- NOTE | 2020-02-02 16:20 | NUR ---
DR. JURADO IN TO SEE PT.
[2020-02-02] MEDS: ATORVASTATIN 40 MG TABLET PO SCH (21:50)
[2020-02-02] MEDS: ASPIRIN EC 81 MG TABLET.DR PO SCH (21:50)
[2020-02-02] MEDS ORDERED: ASPIRIN EC 81 MG TABLET.DR PO ONE (22:14)
--- NOTE | 2020-02-03 07:10 | NUR ---
industrial pipefitter journeyman at bedside.
[2020-02-03] MEDS: CARVEDILOL 3.125 MG TABLET PO SCH ×2 (08:00→11:36)
--- NOTE | 2020-02-03 08:12 | NUR ---
pt hypoxic, on non-rebreather, unable to swallow coreg pill, aware.
[2020-02-03 08:38] LABS: ABG BASE EXCESS -4.1 mmol/L; ABG HCO3 19.6 mmol/L; ABG PCO2 30.8 mmHg (35.0-45.0); ABG PH 7.421 (7.350-7.450); ABG PO2 310.6 mmHg (75.0-100.0); ABG SITE A-Line; ABG TOTAL HEMOGLOBIN 10.4 G/dL (13.5-18.0); COHb 1.2 % (0.5-1.5); MetHb 0.1 % (0.0-1.5); O2Hb 98.4 % (94.0-97.0)
[2020-02-03] MEDS: ALLOPURINOL 100 MG TABLET PO SCH (09:00)
[2020-02-03] MEDS: MULTIVITAMINS,THERAPEUTIC TABLET PO SCH (09:00)
[2020-02-03] MEDS: ASCORBIC ACID 500 MG TABLET PO SCH (09:00)
[2020-02-03] MEDS: AMIODARONE HCL 200 MG TABLET PO SCH (09:00)
[2020-02-03] MEDS: CHOLECALCIFEROL 1,000 UNIT TABLET PO SCH (09:00)
[2020-02-03] MEDS: OMEGA-3 FATTY ACIDS/FISH OIL CAPSULE PO SCH ×2 (09:00→17:30)
--- NOTE | 2020-02-03 09:55 | NUR ---
Blade, pt son called and was updated with the pt condition. his number is [phone]
--- NOTE | 2020-02-03 11:31 | NUR ---
1300 out per pattern gater
[2020-02-03] MEDS ORDERED: CARVEDILOL 3.125 MG TABLET ONE (11:39)
[2020-02-03 11:50] LABS: BASOPHILS % (AUTO) 0.3 % (0.0-2.0); HEMATOCRIT 29.9 % (36.7-47.1); HEMOGLOBIN 10.2 g/dL (12.5-16.3); LYMPHOCYTES # (AUTO) 0.3 K/uL (20.0-40.0); LYMPHOCYTES % (AUTO) 4.1 % (20.5-51.5); MEAN CORPUSCULAR HEMOGLOBIN 34.6 uug (23.8-33.4); MEAN CORPUSCULAR HGB CONC 34 g/dL (32.5-36.3); MEAN CORPUSCULAR VOLUME 101.6 fL (73.0-96.2); MONOCYTES # (AUTO) 0.4 K/uL (2.0-10.0); MONOCYTES % (AUTO) 5.6 % (0.0-11.0); NEUTROPHILS # (AUTO) 6.9 K/uL (1.8-8.9); PLATELET COUNT (AUTO) 111 K/uL (152-348); RED BLOOD CELL COUNT(AUTO) 2.95 MIL/uL (4.06-5.63); WHITE BLOOD COUNT (AUTO) 7.7 K/uL (3.6-10.2)
[2020-02-03 12:22] LABS: CARBON DIOXIDE 23 mmol/L (21-32); CHLORIDE 100 mmol/L (98-107); GLUCOSE 83 mg/dL (74-106); MAGNESIUM 2.1 mg/dL (1.8-2.4); PHOSPHOROUS 4.7 mg/dL (2.5-4.9); POTASSIUM 5.1 mmol/L (3.5-5.1); UREA NITROGEN, BLOOD 66 mg/dL (7-18)
[2020-02-03 12:27] LABS: CREATININE 9.9 mg/dL (0.6-1.3)
[2020-02-03] MEDS ORDERED: DEXAMETHASONE SOD PHOSPHATE 10 MG INJ ONE (16:06)
[2020-02-03] MEDS: DEXAMETHASONE SOD PHOSPHATE 10 MG INJ IV SCH (16:11)
[2020-02-03] MEDS: ALPRAZOLAM 0.5 MG TABLET PO PRN (19:45)
--- NOTE | 2020-02-03 19:47 | NUR ---
PHARMACY NOTE, 0.5 MG WASTED. FELL ON THE FLOOR AND WAS CONTAMINATED, LACHELLE HOPSON
[2020-02-03] MEDS ORDERED: GABAPENTIN 300 MG CAPSULE ONE (20:37)
[2020-02-03] MEDS: GABAPENTIN 300 MG CAPSULE PO SCH (20:45)
[2020-02-03] MEDS ORDERED: ASPIRIN 81 MG TAB.CHEW ONE (20:52)
[2020-02-03] MEDS ORDERED: HEPARIN SODIUM,PORCINE 5,000 UNITS/ML VIAL ONE (20:52)
[2020-02-03] MEDS: ATORVASTATIN 40 MG TABLET PO SCH (20:54)
[2020-02-03] MEDS: HEPARIN SODIUM,PORCINE 5,000 UNITS/ML VIAL SQ SCH (20:54)
[2020-02-03] MEDS: ASPIRIN EC 81 MG TABLET.DR PO SCH (20:55)
--- NOTE | 2020-02-03 21:54 | NUR ---
SBAR REPORT TO ARCHIE RN, PT SENT WITH NRB MASK AND COVID PRECAUTIONS TO [id number].
--- NOTE | 2020-02-03 22:25 | NUR ---
RECEIVED PT FROM ER VIA [facility]. DX:ACUTE CHF, ESRD, COVID+. UNDER DR. MEYER. PT SAFETY AND IN NO ACUTE DISTRESS. IV INTACT. PT REFUSING HIS OXYGEN ON. SAFETY AND COMFORT PROVIDED. ALF ASSESSMENT DONE. SKIN ISSUES NOTED. ADMISSION PROCESS AND CARE PLAN INITIATED. WILL CONTINUE TO MONITOR.
[2020-02-03 23:08] VITALS: BP 115/56
[2020-02-04] VITALS (8 sets, daily range): BP systolic 78–100; BP diastolic 35–56
[2020-02-04] MEDS ORDERED: IV NORMAL SALINE 500 ML IV ONE ×2 (02:00→03:15)
--- NOTE | 2020-02-04 04:49 | NUR ---
PT WAS GIVEN NS [id number] BOLUS FOR BP 78/35. AFTERWARDS BP BECAME 88/[address] MEDICARE CONTACT SPECIALIST ORDERED ANOTHER BOLUS ONE TIME. BP NOW IS 98/43. PT IN NO ACUTE DISTRESS WILL CONTINUE TO MONITOR.
--- NOTE | 2020-02-04 04:51 | NUR ---
PT WAS PUT ON RESTRAINT FOR PT IS RESTLESS AND TAKING OFF HIS OXYGEN WHICH MAKES HIS OXYGEN SATURATION COMPROMISE. WHEN DOING THE BOLUS PT WAS NOT ON RESTRAINT PER PROTOCOL. SAFETY PROVIDED. WILL CONTINUE TO MONITOR.
--- NOTE | 2020-02-04 06:21 | NUR ---
PT SLEPT INTERMITTENTLY. PT IN NO ACUTE DISTRESS. IV INTACT. PRESCRIBED MEDICATION GIVEN AND PT TOLERATED IT WELL. PT TITRATED TO 3L OXYGEN WITH SATURATION OF 94%. PT ON RESTRAINT BECAUSE PT IS NOT COMPLIANT WITH CARE AND RESTLESS. SAFETY AND COMFORT PROVIDED. TRIED CALLING OF PT. WILL ENDORSE TO INCOMING NURSE FOR CONTINUTIY OF CARE.
--- NOTE | 2020-02-04 06:55 | NUR ---
TELEPHONE CONSENT FROM GAYATHRI ERAZO FOR HEMODIALYSIS. NOTIFY THAT PT NONCOMPLIANT AND ORDERED RESTRAINT ON HIS .
[2020-02-04] MEDS: CARVEDILOL 3.125 MG TABLET PO SCH ×2 (08:00→17:05)
[2020-02-04] MEDS: OMEGA-3 FATTY ACIDS/FISH OIL CAPSULE PO SCH ×2 (08:57→16:45)
[2020-02-04] MEDS: MULTIVITAMINS,THERAPEUTIC TABLET PO SCH (08:57)
[2020-02-04] MEDS: CHOLECALCIFEROL 1,000 UNIT TABLET PO SCH (08:57)
[2020-02-04] MEDS: ASCORBIC ACID 500 MG TABLET PO SCH (08:57)
[2020-02-04] MEDS: AMIODARONE HCL 200 MG TABLET PO SCH (08:57)
[2020-02-04] MEDS: ALLOPURINOL 100 MG TABLET PO SCH (08:57)
[2020-02-04] MEDS: HEPARIN SODIUM,PORCINE 5,000 UNITS/ML VIAL SQ SCH ×2 (09:00→21:35)
[2020-02-04] MEDS: DEXAMETHASONE SOD PHOSPHATE 10 MG INJ IV SCH (09:01)
[2020-02-04 11:54] LABS: BASOPHILS % (AUTO) 0.2 % (0.0-2.0); HEMATOCRIT 27.1 % (36.7-47.1); LYMPHOCYTES # (AUTO) 0.4 K/uL (20.0-40.0); LYMPHOCYTES % (AUTO) 10.5 % (20.5-51.5); MEAN CORPUSCULAR HEMOGLOBIN 34.1 uug (23.8-33.4); MEAN CORPUSCULAR HGB CONC 33 g/dL (32.5-36.3); MEAN CORPUSCULAR VOLUME 102.6 fL (73.0-96.2); MONOCYTES # (AUTO) 0.3 K/uL (2.0-10.0); MONOCYTES % (AUTO) 5.9 % (0.0-11.0); NEUTROPHILS # (AUTO) 3.5 K/uL (1.8-8.9); NEUTROPHILS % (AUTO) 83.4 % (38.5-71.5); PLATELET COUNT (AUTO) 88 K/uL (152-348); RED BLOOD CELL COUNT(AUTO) 2.64 MIL/uL (4.06-5.63); WHITE BLOOD COUNT (AUTO) 4.2 K/uL (3.6-10.2)
[2020-02-04 12:12] LABS: CARBON DIOXIDE 22 mmol/L (21-32); CHLORIDE 99 mmol/L (98-107); GLUCOSE 159 mg/dL (74-106); MAGNESIUM 2.2 mg/dL (1.8-2.4); POTASSIUM 5.4 mmol/L (3.5-5.1)
[2020-02-04 13:12] LABS: CREATININE 12.3 mg/dL (0.6-1.3); PHOSPHOROUS 9.1 mg/dL (2.5-4.9); UREA NITROGEN, BLOOD 96 mg/dL (7-18)
--- NOTE | 2020-02-04 13:57 | NUR ---
CRITICAL LAB OF [facility] REPORTED TO NICOLE SALCEDO WITH POSSIBLE DIALYSIS TODAY PER NICOLE SALCEDO
--- NOTE | 2020-02-04 17:06 | NUR ---
patient got dialysed removed 1000ml, tolerated well
--- NOTE | 2020-02-04 18:00 | NUR ---
patient is cooperative, calm and not trying to pull anything, soft wrist restrains discontinued, MD notified, will continue to monitor
[2020-02-04] MEDS: ATORVASTATIN 40 MG TABLET PO SCH (21:32)
[2020-02-04] MEDS: GABAPENTIN 300 MG CAPSULE PO SCH (21:32)
[2020-02-04] MEDS: ASPIRIN EC 81 MG TABLET.DR PO SCH (21:32)
[2020-02-05] MEDS: ALPRAZOLAM 0.5 MG TABLET PO PRN (00:29)
[2020-02-05] MEDS: ACETAMINOPHEN 325 MG TABLET PO PRN (00:29)
[2020-02-05 00:55] VITALS: BP 88/47
[2020-02-05 04:50] VITALS: BP 82/38
[2020-02-05 08:00] VITALS: BP 75/38
[2020-02-05] MEDS: CARVEDILOL 3.125 MG TABLET PO SCH ×2 (08:00→18:00)
[2020-02-05] MEDS: ALLOPURINOL 100 MG TABLET PO SCH (10:08)
[2020-02-05] MEDS: OMEGA-3 FATTY ACIDS/FISH OIL CAPSULE PO SCH ×2 (10:08→17:18)
[2020-02-05] MEDS: MULTIVITAMINS,THERAPEUTIC TABLET PO SCH (10:08)
[2020-02-05] MEDS: CHOLECALCIFEROL 1,000 UNIT TABLET PO SCH (10:08)
[2020-02-05] MEDS: ASCORBIC ACID 500 MG TABLET PO SCH (10:08)
[2020-02-05] MEDS: DEXAMETHASONE SOD PHOSPHATE 10 MG INJ IV SCH (10:09)
[2020-02-05] MEDS: AMIODARONE HCL 200 MG TABLET PO SCH (10:11)
[2020-02-05] MEDS: HEPARIN SODIUM,PORCINE 5,000 UNITS/ML VIAL SQ SCH ×2 (10:13→22:16)
[2020-02-05 12:00] VITALS: BP 145/82
[2020-02-05 12:03] LABS: BASOPHILS % (AUTO) 0.1 % (0.0-2.0); HEMATOCRIT 25.8 % (36.7-47.1); HEMOGLOBIN 8.6 g/dL (12.5-16.3); LYMPHOCYTES # (AUTO) 0.4 K/uL (20.0-40.0); LYMPHOCYTES % (AUTO) 4.2 % (20.5-51.5); MEAN CORPUSCULAR HEMOGLOBIN 34.2 uug (23.8-33.4); MEAN CORPUSCULAR HGB CONC 33 g/dL (32.5-36.3); MEAN CORPUSCULAR VOLUME 102.7 fL (73.0-96.2); MONOCYTES # (AUTO) 0.5 K/uL (2.0-10.0); MONOCYTES % (AUTO) 6.1 % (0.0-11.0); NEUTROPHILS # (AUTO) 7.6 K/uL (1.8-8.9); NEUTROPHILS % (AUTO) 89.6 % (38.5-71.5); PLATELET COUNT (AUTO) 104 K/uL (152-348); RED BLOOD CELL COUNT(AUTO) 2.51 MIL/uL (4.06-5.63); WHITE BLOOD COUNT (AUTO) 8.4 K/uL (3.6-10.2)
[2020-02-05 12:12] LABS: CARBON DIOXIDE 24 mmol/L (21-32); CHLORIDE 100 mmol/L (98-107); GLUCOSE 154 mg/dL (74-106); MAGNESIUM 2.3 mg/dL (1.8-2.4); PHOSPHOROUS 6.8 mg/dL (2.5-4.9)
[2020-02-05 13:12] LABS: UREA NITROGEN, BLOOD 86 mg/dL (7-18)
[2020-02-05 13:13] LABS: CREATININE 9.8 mg/dL (0.6-1.3)
[2020-02-05] MEDS ORDERED: GUAIFENESIN/CODEINE 5 ML LIQUID UDC PO PRN (13:15)
[2020-02-05 16:00] VITALS: BP 74/49
--- NOTE | 2020-02-05 17:30 | NUR ---
Patient noted to be shaking, with temp 100.2, saturating 78-82% on 3L. not tolerating 6L, placed on NRB 15L. Tylenol given and applied ice packs. Will monitor
[2020-02-05] MEDS ORDERED: CEFEPIME HCL 1 G in IV DEXTROSE 5% 50 ML IV SCH ×2 (19:00→19:09)
--- NOTE | 2020-02-05 19:30 | NUR ---
On NRB 15L saturating 85-89%, temp of 98.5 but still shaking. Stated that he doesn't have any SOB. RT Baltzaar called and in room supplemented NRB 15L with 5L NC, saturating 95%. Informed Dr. Caro and ID ordered Cefepime. Endorsed to PM shift nurse
[2020-02-05 20:46] VITALS: BP 107/89
[2020-02-05] MEDS: ATORVASTATIN 40 MG TABLET PO SCH (21:53)
[2020-02-05] MEDS: GABAPENTIN 300 MG CAPSULE PO SCH (21:53)
[2020-02-05] MEDS: ASPIRIN EC 81 MG TABLET.DR PO SCH (21:53)
[2020-02-06 01:24] VITALS: BP 128/96
[2020-02-06 05:51] VITALS: BP 140/67
--- NOTE | 2020-02-06 06:27 | NUR ---
NOTIFY [facility] RAY OPERATOR ABOUT CEFIDINE ABX, AND SAID TO FOLLOW UP WITH ID. CARRASCO.
--- NOTE | 2020-02-06 07:30 | NUR ---
RECEIVED PATIENT IN BED, CONFUSED AND LETHARGIC. OPENS EYES TO NAME. NO SIGNS OF DISTRESS AT THAT TIME. BP 94/65, O2SAT ON NONREABREATHER MASK WAS 94%. SAFETY AND FALL PREVENTION IN PLACE. WILL CONTINUE TO MONITOR PATIENT. ON MONITOR SR IN 60S.
[2020-02-06] MEDS: CARVEDILOL 3.125 MG TABLET PO SCH ×2 (08:00→17:57)
--- NOTE | 2020-02-06 08:00 | NUR ---
PATIENT ALERT ORIENTED, NO SOB NO CHEST PAIN, SATURATING WNL NO COMPLAIN OF PAIN, PATIENT A PACING ON THE TELE, CONT TO MONITOR.
[2020-02-06] MEDS: ASCORBIC ACID 500 MG TABLET PO SCH (09:59)
[2020-02-06] MEDS: CHOLECALCIFEROL 1,000 UNIT TABLET PO SCH (09:59)
[2020-02-06] MEDS: AMIODARONE HCL 200 MG TABLET PO SCH (09:59)
[2020-02-06] MEDS: MULTIVITAMINS,THERAPEUTIC TABLET PO SCH (10:00)
[2020-02-06] MEDS: ALLOPURINOL 100 MG TABLET PO SCH (10:00)
[2020-02-06] MEDS: OMEGA-3 FATTY ACIDS/FISH OIL CAPSULE PO SCH ×2 (10:00→17:00)
[2020-02-06] MEDS: HEPARIN SODIUM,PORCINE 5,000 UNITS/ML VIAL SQ SCH ×2 (10:03→20:59)
[2020-02-06] MEDS: DEXAMETHASONE SOD PHOSPHATE 10 MG INJ IV SCH (10:04)
[2020-02-06] MEDS: CEFEPIME HCL 1 G in IV DEXTROSE 5% 50 ML IV SCH (10:32)
[2020-02-06 12:00] VITALS: BP 121/93
--- NOTE | 2020-02-06 12:00 | NUR ---
BLINDSTITCH MACHINE OPERATOR CALLED ON THIS PATIENT BECAUSE OF LOW BP. 60S/20S. Addendum: 02/06/20 at 1958 by HUMA THOMPSON RN BLINDSTITCH MACHINE OPERATOR TEAM CAME TO INVESTIGATE.
--- NOTE | 2020-02-06 12:00 | NUR ---
NOTIFIED DR. JURADO THAT PATIENT BP 60/30S, PATIENT IS LETHARGIC AND TEMPERATURE 102.9. MD ORDERS GIVEN TO GIVE 500 BOLUS IV FLUIDS AND BLOOD CULTURES TIMES 2.
--- NOTE | 2020-02-06 12:30 | NUR ---
BOLUS OF NS 500L GIVEN TO PATIENT ORDERED BUT THE PATIENT CONTINUES TO HAVE LOW BP 50S/20S. CALLED DR JURADO AND STATED OF TO TRANSFER TO ER BECAUSE THERE IS NO ROOM IN THE ICU. PATIENT CONTINUES TO BE IN TRANDELEMBURG POSITION AND CLOSE MONITORING.
--- NOTE | 2020-02-06 14:30 | NUR ---
PATIENT TAKEN DOWN TO ER PER TRANSFER ORDERS FROM DR. JURADO. PATIENT IN UNSTABLE CONDITION WITH BP 60/30. ON NON REBREATER MASK AT 15L SATURATING 92%. PATIENT LETHARGIC.
[2020-02-06] MEDS ORDERED: PHENYLEPHRINE IV 100 MG in IV NORMAL SALINE 240 ML IV PRN (15:00)
[2020-02-06] MEDS ORDERED: IV NS 1000 ML 1,000 ML IV PRN (15:00)
--- NOTE | 2020-02-06 15:00 | NUR ---
triple lumen picc line placed by Allen Clement.
--- NOTE | 2020-02-06 15:00 | NUR ---
pt transfered from third floor due to hypotension,fever on rapid response call. on arrival to ed, pt non-verbal, on non-rebreather 96%. bp 84/44. er md at bedside.
--- NOTE | 2020-02-06 15:30 | NUR ---
Reposition for comfort, noted pt has mid sacral skin openning w/ blue and red surronding.
[2020-02-06] MEDS ORDERED: IV NORMAL SALINE 1000 ML BAG IV ONE (16:00)
--- NOTE | 2020-02-06 16:03 | NUR ---
Increased Neosynephrine to 0.6 mcg/kg/min.
--- NOTE | 2020-02-06 16:26 | NUR ---
BP 91/44, increased neosynephrine to 0.7mcg/kg/min. will continue to monitor.
--- NOTE | 2020-02-06 17:02 | NUR ---
Pt is too lethergic to take PO meds.
--- NOTE | 2020-02-06 19:30 | NUR ---
Received patient in shift report
--- NOTE | 2020-02-06 20:00 | NUR ---
Sacral opening with blue/purple bruising noted, zguard and air mattress ordered, patient rotated to his side
[2020-02-06] MEDS ORDERED: ASPIRIN 81 MG TAB.CHEW ONE (20:22)
[2020-02-06] MEDS ORDERED: HEPARIN SODIUM,PORCINE 5,000 UNITS/ML VIAL ONE (20:22)
[2020-02-06] MEDS: ASPIRIN EC 81 MG TABLET.DR PO SCH (20:59)
[2020-02-06] MEDS: ATORVASTATIN 40 MG TABLET PO SCH (20:59)
[2020-02-06] MEDS: GABAPENTIN 300 MG CAPSULE PO SCH (20:59)
[2020-02-06] MEDS ORDERED: TOCILIZUMAB 400 MG in IV NORMAL SALINE 80 ML IV ONE (21:00)
[2020-02-06] MEDS ORDERED: ACETAMINOPHEN 325 MG TABLET PO ONE (21:00)
[2020-02-06] MEDS ORDERED: diphenhydrAMINE 50 MG/1 ML VIAL IV ONE (21:00)
[2020-02-06] MEDS ORDERED: diphenhydrAMINE 50 MG/1 ML VIAL ONE (21:49)
[2020-02-06] MEDS ORDERED: ACETAMINOPHEN 325 MG TABLET ONE (21:49)
[2020-02-06] MEDS ORDERED: VANCOMYCIN IV 2,000 MG in IV DEXTROSE 5% 500 ML IV ONE (22:00)
[2020-02-06] MEDS ORDERED: VANCOMYCIN 1000 MG VIAL ONE (22:13)
--- NOTE | 2020-02-07 05:30 | NUR ---
B/p noted at 81/44, Neosyneprine increased to 0.8 mcg
--- NOTE | 2020-02-07 06:30 | NUR ---
Neosyneprine titrated up to 1.3 mcg, b/p noted at 113/71
[2020-02-07] MEDS ORDERED: Z GUARD REMEDY PASTE 57 GM TUBE TOP PRN (06:45)
--- NOTE | 2020-02-07 07:10 | NUR ---
Shift report given to Keeley REID
[2020-02-07] MEDS: CARVEDILOL 3.125 MG TABLET PO SCH (08:00)
[2020-02-07] MEDS ORDERED: HEPARIN SODIUM,PORCINE 5,000 UNITS/ML VIAL ONE ×2 (08:22→21:12)
[2020-02-07] MEDS ORDERED: DEXAMETHASONE SOD PHOSPHATE 10 MG INJ ONE (08:22)
[2020-02-07] MEDS ORDERED: AMIODARONE HCL 200 MG TABLET ONE (08:25)
[2020-02-07] MEDS ORDERED: ALLOPURINOL 100 MG TABLET ONE (08:25)
[2020-02-07] MEDS ORDERED: CHOLECALCIFEROL 400 UNITS TABLET ONE (08:25)
[2020-02-07] MEDS: MULTIVITAMINS,THERAPEUTIC TABLET PO SCH (08:45)
[2020-02-07] MEDS: OMEGA-3 FATTY ACIDS/FISH OIL CAPSULE PO SCH ×2 (08:45→16:41)
[2020-02-07] MEDS: AMIODARONE HCL 200 MG TABLET PO SCH (08:45)
[2020-02-07] MEDS: CHOLECALCIFEROL 1,000 UNIT TABLET PO SCH (08:45)
[2020-02-07] MEDS: DEXAMETHASONE SOD PHOSPHATE 10 MG INJ IV SCH (08:45)
[2020-02-07] MEDS: ALLOPURINOL 100 MG TABLET PO SCH (08:45)
[2020-02-07] MEDS: ASCORBIC ACID 500 MG TABLET PO SCH (08:45)
[2020-02-07 08:47] LABS: BASOPHILS % (AUTO) 0.1 % (0.0-2.0); EOSINOPHILS # (AUTO) 0.1 K/uL (0.0-0.7); HEMATOCRIT 23.6 % (36.7-47.1); LYMPHOCYTES # (AUTO) 0.3 K/uL (20.0-40.0); LYMPHOCYTES % (AUTO) 2.7 % (20.5-51.5); MEAN CORPUSCULAR HGB CONC 34 g/dL (32.5-36.3); MEAN CORPUSCULAR VOLUME 103.7 fL (73.0-96.2); MONOCYTES # (AUTO) 0.1 K/uL (2.0-10.0); NEUTROPHILS # (AUTO) 10.4 K/uL (1.8-8.9); NEUTROPHILS % (AUTO) 95.2 % (38.5-71.5); PLATELET COUNT (AUTO) 62 K/uL (152-348); WHITE BLOOD COUNT (AUTO) 10.9 K/uL (3.6-10.2)
[2020-02-07] MEDS: HEPARIN SODIUM,PORCINE 5,000 UNITS/ML VIAL SQ SCH ×2 (08:47→21:17)
--- NOTE | 2020-02-07 09:02 | NUR ---
PATIENTS BP DECREASING, INCREASED SAGAR TO 1.5MCG
--- NOTE | 2020-02-07 09:33 | NUR ---
PATIENTS BLOOD PRESSURE 80/50 PATIENT ALERT AND ABLE TO ANSWER QUESTIONS. SAGAR INCREASED TO 2.0MCG
[2020-02-07 09:35] LABS: RED BLOOD CELL COUNT(AUTO) 2.28 MIL/uL (4.06-5.63)
[2020-02-07 09:36] LABS: ALANINE AMINOTRANSFERASE 191 U/L (16-63); ALKALINE PHOSPHATASE 101 U/L (50-136); ASPARTATE AMINOTRANSFERASE 304 U/L (15-37); BILIRUBIN,TOTAL 0.6 mg/dL (0.2-1.0); CARBON DIOXIDE 23 mmol/L (21-32); CHLORIDE 103 mmol/L (98-107); FERRITIN 12072 ng/mL (26-388); GLUCOSE 198 mg/dL (74-106); MAGNESIUM 2.3 mg/dL (1.8-2.4); PHOSPHOROUS 6.9 mg/dL (2.5-4.9); POTASSIUM 4.7 mmol/L (3.5-5.1); TOTAL PROTEIN, SERUM 5.6 g/dL (6.4-8.2)
[2020-02-07 10:24] LABS: CREATININE 9.6 mg/dL (0.6-1.3); UREA NITROGEN, BLOOD 98 mg/dL (7-18)
--- NOTE | 2020-02-07 10:43 | NUR ---
Called pharmqacy, will be switching out from SAGAR to LEVO, slowly titrating up.
[2020-02-07] MEDS ORDERED: NOREPINEPHRINE BITARTRATE 8 MG in IV NORMAL SALINE 242 ML IV PRN (10:45)
[2020-02-07] MEDS: CEFEPIME HCL 1 G in IV DEXTROSE 5% 50 ML IV SCH (10:51)
--- NOTE | 2020-02-07 13:03 | NUR ---
1500cc removed via dialysis
--- NOTE | 2020-02-07 13:26 | NUR ---
levo running at 0.3mcg/kg/min blood pressure steady
[2020-02-07] MEDS ORDERED: VANCOMYCIN IV 500 MG in IV DEXTROSE 5% 100 ML IV PRN (14:00)
--- NOTE | 2020-02-07 15:45 | NUR ---
patient started having high HR, ekg done and shown to Dr. Caro who said okay. also gave okay to put patient on high flow NC
[2020-02-07 16:06] LABS: LYMPHOCYTES % (MANUAL) 4 % (20-40); MONOCYTES % (MANUAL) 1 % (2-10); NEUTROPHILS % (MANUAL) 95 % (42-75)
[2020-02-07 16:09] LABS: ABG BASE EXCESS -7.2 mmol/L; ABG HCO3 17.7 mmol/L; ABG PCO2 33.8 mmHg (35.0-45.0); ABG PH 7.337 (7.350-7.450); ABG SITE RIGHT RADIAL; ABG TOTAL HEMOGLOBIN 11.5 G/dL (13.5-18.0); COHb 1.2 % (0.5-1.5); O2Hb 80.8 % (94.0-97.0); VENT MODE VAPOTHERM
--- NOTE | 2020-02-07 16:20 | NUR ---
Spoke to DR. Otto who requested bipap at 27/09 100%
--- NOTE | 2020-02-07 18:09 | NUR ---
Dr. Otto states on bipaper 02 from 88-95% okay
--- NOTE | 2020-02-07 19:00 | NUR ---
Assumed care of patient on Levophed @ 0.4mcg/kg/min. Drip continued, well tolerated by patient.
--- NOTE | 2020-02-07 19:57 | NUR ---
Patient in bed, no acute distress noted. VSS
[2020-02-07] MEDS: GABAPENTIN 300 MG CAPSULE PO SCH (20:57)
[2020-02-07] MEDS: ATORVASTATIN 40 MG TABLET PO SCH (20:57)
[2020-02-07] MEDS ORDERED: ASPIRIN EC 81 MG TABLET.DR PO SCH (21:00)
--- NOTE | 2020-02-07 22:33 | NUR ---
All patient needs attended and met. No acute distress at this time. VSS. WIll continue to monitor patient. Frequent visual checks ongoing. Bipap well tolerated. Remains on Levo gtt, well tolerated, BP maintained at appropriate parameters as indicated by
--- NOTE | 2020-02-07 23:31 | NUR ---
Patient in bed, VSS/ No acute distress noted. Will continue to monitor.
--- NOTE | 2020-02-08 01:32 | NUR ---
Patient in bed, no acute distress noted. Bipap well tolerated. Levo ongoing, BP maintained at this time. 107/73
--- NOTE | 2020-02-08 02:25 | NUR ---
Patient remains in bed, no acute distress noted. All patient needs attended and met. VSS
--- NOTE | 2020-02-08 03:47 | NUR ---
Patient in bed, no acute distress noted. Offered fluid/voiding/perineal care/bed change. Patient refused at this time, requests to sleep. No acute distress noted. bipap well tolerated.
--- NOTE | 2020-02-08 04:41 | NUR ---
Patient resting in bed, no acute distress noted. Tolerating bipap at this time. patient SaO2 remains in 90s on bipap. Levophed GTT ongoing, BP remains within acceptable limits, currently at 124/72
--- NOTE | 2020-02-08 04:57 | NUR ---
Patient noted with multiple episodes of shocks from his AICD, BERNARD CARRASCO notified. BERNARD CARRASCO spoke to inpatient MD regarding the event. Patient currently back in his regular rhythm. Addendum: 02/08/20 at 0500 by COURTNEY Patient noted with multiple episodes of AICD firing, BERNARD CARRASCO notified. BERNARD CARRASCO spoke to inpatient MD regarding the event. Patient currently back in his baseline rhythm.
--- NOTE | 2020-02-08 05:27 | NUR ---
Patient noted with multiple episodes of AICD firing on rn cardiac, inpatient MD contacted via panel call. ER MD aware. Awaiting call back at this time.
--- NOTE | 2020-02-08 05:34 | NUR ---
New orders noted for Lab Draw, awaiting for phlebotomy arrival for labs. Patient remains in no acute distress with stable vs
--- NOTE | 2020-02-08 05:53 | NUR ---
Spoke to Dr Acuña, she will speak to cardiology regarding patient events of AICD firing.
--- NOTE | 2020-02-08 06:00 | NUR ---
Patient in bed, no acute distress noted. Tolerating Bipap well. Will continue to monitor patient.
[2020-02-08] MEDS ORDERED: AMIODARONE HCL IV 150 MG in IV DEXTROSE 5% 100 ML IV ONE (06:15)
[2020-02-08] MEDS ORDERED: AMIODARONE HCL 150 MG/3 ML VIAL IV ONE (06:18)
--- NOTE | 2020-02-08 06:29 | NUR ---
Cordarone stopped per ER MD instruction. Clarrification of monitor read per ER MD, patient having pacer spikes but not AICD firing.
--- NOTE | 2020-02-08 07:02 | NUR ---
Report to Gera REID
--- NOTE | 2020-02-08 07:05 | NUR ---
Received report from film processing shift supervisor. Pt is in room 5a, on Bipap and Levophed at 0.4 mcg/kg/min. Per report pt was brought to ER from tele floor due to low BP and because there were no CCU beds available.
[2020-02-08] MEDS: AMIODARONE HCL 200 MG TABLET PO SCH (09:00)
[2020-02-08] MEDS: ASCORBIC ACID 500 MG TABLET PO SCH (09:00)
[2020-02-08] MEDS: ALLOPURINOL 100 MG TABLET PO SCH (09:00)
[2020-02-08] MEDS: CHOLECALCIFEROL 1,000 UNIT TABLET PO SCH (09:00)
[2020-02-08] MEDS: MULTIVITAMINS,THERAPEUTIC TABLET PO SCH (09:00)
[2020-02-08] MEDS: OMEGA-3 FATTY ACIDS/FISH OIL CAPSULE PO SCH ×2 (09:00→17:00)
[2020-02-08] MEDS ORDERED: DEXAMETHASONE SOD PHOSPHATE 10 MG INJ ONE (09:29)
[2020-02-08] MEDS ORDERED: HEPARIN SODIUM,PORCINE 5,000 UNITS/ML VIAL ONE ×2 (09:29→21:27)
[2020-02-08] MEDS: DEXAMETHASONE SOD PHOSPHATE 10 MG INJ IV SCH (09:36)
[2020-02-08] MEDS: HEPARIN SODIUM,PORCINE 5,000 UNITS/ML VIAL SQ SCH ×2 (09:37→21:26)
[2020-02-08] MEDS ORDERED: CEFEPIME HCL 1 G VIAL ONE (10:05)
[2020-02-08] MEDS: CEFEPIME HCL 1 G in IV DEXTROSE 5% 50 ML IV SCH (10:16)
--- NOTE | 2020-02-08 12:00 | NUR ---
Pt remains on Bipap and Levophed drip. Remains as a pend admission.
--- NOTE | 2020-02-08 14:00 | NUR ---
Spoke with pt's son via telephone and updated him on pt's current condition.
[2020-02-08 18:11] LABS: BASOPHILS % (AUTO) 0.2 % (0.0-2.0); EOSINOPHILS # (AUTO) 0.2 K/uL (0.0-0.7); EOSINOPHILS % (AUTO) 1.2 % (0.0-7.0); HEMATOCRIT 31.9 % (36.7-47.1); HEMOGLOBIN 10.6 g/dL (12.5-16.3); LYMPHOCYTES # (AUTO) 0.5 K/uL (20.0-40.0); LYMPHOCYTES % (AUTO) 2.3 % (20.5-51.5); MEAN CORPUSCULAR HGB CONC 33 g/dL (32.5-36.3); MEAN CORPUSCULAR VOLUME 102.8 fL (73.0-96.2); MONOCYTES # (AUTO) 0.8 K/uL (2.0-10.0); MONOCYTES % (AUTO) 4.1 % (0.0-11.0); NEUTROPHILS % (AUTO) 92.2 % (38.5-71.5); PLATELET COUNT (AUTO) 143 K/uL (152-348); WHITE BLOOD COUNT (AUTO) 20.6 K/uL (3.6-10.2)
[2020-02-08 18:31] LABS: ALANINE AMINOTRANSFERASE 219 U/L (16-63); ALKALINE PHOSPHATASE 171 U/L (50-136); ASPARTATE AMINOTRANSFERASE 226 U/L (15-37); CARBON DIOXIDE 20 mmol/L (21-32); CHLORIDE 104 mmol/L (98-107); GLUCOSE 274 mg/dL (74-106); MAGNESIUM 2.7 mg/dL (1.8-2.4); TOTAL PROTEIN, SERUM 6.7 g/dL (6.4-8.2)
[2020-02-08 18:44] LABS: CREATININE 9.7 mg/dL (0.6-1.3); POTASSIUM 6.8 mmol/L (3.5-5.1); UREA NITROGEN, BLOOD 115 mg/dL (7-18)
--- NOTE | 2020-02-08 19:06 | NUR ---
Pt remains on Bipap, no acute distress noted.
[2020-02-08] MEDS: ATORVASTATIN 40 MG TABLET PO SCH (21:24)
[2020-02-08] MEDS: GABAPENTIN 300 MG CAPSULE PO SCH (21:24)
[2020-02-08] MEDS ORDERED: GABAPENTIN 300 MG CAPSULE ONE (21:29)
--- NOTE | 2020-02-08 21:41 | NUR ---
PATIENT IN BED ASLEEP ON STILL ON BIPAD.
--- NOTE | 2020-02-09 07:15 | NUR ---
Levophed drip running at 0.2 mcg/kg/min. No neosynephrine running currently.
[2020-02-09] MEDS ORDERED: AMIODARONE HCL 200 MG TABLET ONE (09:16)
[2020-02-09] MEDS ORDERED: DEXAMETHASONE SOD PHOSPHATE 4 MG INJ ONE (09:17)
[2020-02-09] MEDS ORDERED: CEFEPIME HCL 1 G VIAL ONE (09:17)
[2020-02-09] MEDS ORDERED: ALLOPURINOL 100 MG TABLET ONE (09:17)
[2020-02-09] MEDS ORDERED: GABAPENTIN 300 MG CAPSULE ONE (09:18)
[2020-02-09] MEDS ORDERED: HEPARIN SODIUM,PORCINE 5,000 UNITS/ML VIAL ONE ×2 (09:18→20:54)
[2020-02-09] MEDS ORDERED: ASCORBIC ACID 500 MG TABLET ONE (09:23)
[2020-02-09 09:29] LABS: ABG BASE EXCESS -5.2 mmol/L; ABG HCO3 18.6 mmol/L; ABG PCO2 30.7 mmHg (35.0-45.0); ABG PH 7.401 (7.350-7.450); ABG SITE RIGHT RADIAL; ABG TOTAL HEMOGLOBIN 10.6 G/dL (13.5-18.0); COHb 1.5 % (0.5-1.5); O2Hb 92.1 % (94.0-97.0); VENT MODE BIPAP
--- NOTE | 2020-02-09 10:45 | NUR ---
physician office specialist stated that he could not dialyze pt due to a problem with the shunt, RN stated he would advise admitting MD. Plan was to have a temp cath inserted for use.
[2020-02-09] MEDS: HEPARIN SODIUM,PORCINE 5,000 UNITS/ML VIAL SQ SCH ×2 (10:50→21:04)
[2020-02-09 10:53] LABS: EOSINOPHILS # (AUTO) 2.5 K/uL (0.0-0.7); EOSINOPHILS % (AUTO) 10.6 % (0.0-7.0); HEMATOCRIT 30.3 % (36.7-47.1); LYMPHOCYTES # (AUTO) 1.9 K/uL (20.0-40.0); LYMPHOCYTES % (AUTO) 7.8 % (20.5-51.5); MEAN CORPUSCULAR HGB CONC 33 g/dL (32.5-36.3); MEAN CORPUSCULAR VOLUME 102.9 fL (73.0-96.2); MONOCYTES # (AUTO) 0.5 K/uL (2.0-10.0); MONOCYTES % (AUTO) 2.2 % (0.0-11.0); NEUTROPHILS % (AUTO) 79.4 % (38.5-71.5); PLATELET COUNT (AUTO) 137 K/uL (152-348); RED BLOOD CELL COUNT(AUTO) 2.94 MIL/uL (4.06-5.63); WHITE BLOOD COUNT (AUTO) 23.9 K/uL (3.6-10.2)
[2020-02-09] MEDS: DEXAMETHASONE SOD PHOSPHATE 10 MG INJ IV SCH (10:55)
[2020-02-09] MEDS: CEFEPIME HCL 1 G in IV DEXTROSE 5% 50 ML IV SCH (10:55)
[2020-02-09 11:03] LABS: CARBON DIOXIDE 22 mmol/L (21-32); CHLORIDE 107 mmol/L (98-107); GLUCOSE 273 mg/dL (74-106); MAGNESIUM 2.9 mg/dL (1.8-2.4)
[2020-02-09 11:10] LABS: POTASSIUM 7.4 mmol/L (3.5-5.1); UREA NITROGEN, BLOOD 140 mg/dL (7-18)
[2020-02-09 11:11] LABS: PHOSPHOROUS 8.5 mg/dL (2.5-4.9)
[2020-02-09] MEDS ORDERED: DEXTROSE 50% 50 ML DISP.SYRIN IV ONE ×2 (11:15→14:15)
[2020-02-09] MEDS ORDERED: SODIUM BICARBONATE 8.4% 50 MEQ/50 ML DISP.SYRIN IV ONE ×3 (11:15→14:15)
[2020-02-09] MEDS ORDERED: ALBUTEROL SULFATE 2.5 MG/3 ML NEBU NEB ONE (11:15)
[2020-02-09] MEDS ORDERED: INSULIN REGULAR, HUMAN 300 UNIT/3 ML VIAL IV ONE (11:15)
--- NOTE | 2020-02-09 11:15 | NUR ---
Pt not staying alert long enough to take PO medication, so PO meds held. Had paged Dr. Caro.
[2020-02-09] MEDS ORDERED: DEXTROSE 50% 50 ML DISP.SYRIN ONE (12:47)
[2020-02-09] MEDS ORDERED: INSULIN REGULAR, HUMAN 300 UNIT/3 ML VIAL ONE (12:48)
[2020-02-09] MEDS ORDERED: FUROSEMIDE 40 MG/4 ML VIAL IV ONE (14:15)
[2020-02-09] MEDS ORDERED: HUMAN IV ONE ×2 (14:15)
[2020-02-09] MEDS ORDERED: NORMAL SALINE IV ONE ×2 (14:15)
[2020-02-09] MEDS ORDERED: INSULIN REGULAR IV ONE ×2 (14:15)
[2020-02-09] MEDS ORDERED: CALCIUM GLUCONATE IV 1 GM in IV NORMAL SALINE 100 ML IV ONE (14:15)
[2020-02-09] MEDS ORDERED: SODIUM POLYSTYRENE SULFONATE 15 G/60 ML LIQUID UDC PO ONE (14:15)
--- NOTE | 2020-02-09 14:15 | NUR ---
Sodium Bicarb already given, this is a duplicate order.
[2020-02-09] MEDS ORDERED: SODIUM POLYSTYRENE SULFONATE ENEMA 30 G/120 ML BOTTLE RC ONE (15:42)
[2020-02-09] MEDS ORDERED: CALCIUM GLUCONATE 1 GM/10 ML VIAL IV ONE (15:49)
--- NOTE | 2020-02-09 17:06 | NUR ---
HOLD PO MEDS for today, re-assess pt's LOC tomorrow, per Dr Caro. Pt not waking long enough to take PO meds.
[2020-02-09 17:07] LABS: BAND % (MANUAL) 5 % (0-10); LYMPHOCYTES % (MANUAL) 1 % (20-40); MONOCYTES % (MANUAL) 5 % (2-10); NEUTROPHILS % (MANUAL) 89 % (42-75)
[2020-02-09] MEDS: AMIODARONE HCL 200 MG TABLET PO SCH (19:21)
[2020-02-09] MEDS: NOREPINEPHRINE BITARTRATE 32 MG in IV NORMAL SALINE 218 ML IV PRN ×5 (19:21→22:21)
[2020-02-09] MEDS: ASCORBIC ACID 500 MG TABLET PO SCH (19:22)
[2020-02-09] MEDS: CHOLECALCIFEROL 1,000 UNIT TABLET PO SCH (19:22)
[2020-02-09] MEDS: MULTIVITAMINS,THERAPEUTIC TABLET PO SCH (19:22)
[2020-02-09] MEDS: ALLOPURINOL 100 MG TABLET PO SCH (19:22)
[2020-02-09] MEDS: OMEGA-3 FATTY ACIDS/FISH OIL CAPSULE PO SCH ×2 (19:22→19:23)
--- NOTE | 2020-02-09 19:30 | NUR ---
Patient remains on bipap, O2 95%, SBP maintained at 100's. Will monitor.
--- NOTE | 2020-02-09 20:01 | NUR ---
Son Blade called, updated on patient condition.
[2020-02-09] MEDS: ATORVASTATIN 40 MG TABLET PO SCH (20:33)
[2020-02-09] MEDS: GABAPENTIN 300 MG CAPSULE PO SCH (20:33)
--- NOTE | 2020-02-09 20:48 | NUR ---
SBP low increased levophed.
--- NOTE | 2020-02-09 22:15 | NUR ---
Levophed increased per order.
[2020-02-09 22:21] VITALS: BP 65/26
--- NOTE | 2020-02-09 22:21 | NUR ---
levophed increased per order.
--- NOTE | 2020-02-09 22:25 | NUR ---
Noted patient heart rate noted to be in the 50's. DR. Quach notified to evaluate patient.
--- NOTE | 2020-02-09 22:28 | NUR ---
Code blue was called.
[2020-02-09] MEDS ORDERED: EPINEPHRINE 1:10,000 1 MG/10 ML DISP.SYRIN IV ONE (22:43)
[2020-02-09] MEDS ORDERED: ATROPINE SULFATE 1 MG/10 ML DISP.SYRIN IV ONE (22:43)
--- NOTE | 2020-02-09 23:03 | NUR ---
Note luzmaria in ED - 02/09/20 at 2314 by [email or web address] Levophed increased per order.
--- NOTE | 2020-02-09 23:11 | NUR ---
Called [facility], spoke to Anamaria. Patient determine not to be an organ donor. .
--- NOTE | 2020-02-09 23:18 | NUR ---
Family son Blade notified by Dr. Quach.
--- NOTE | 2020-02-09 23:42 | NUR ---
Spoke with Blade, does not know if patient picked out a mortuary, Blade will speak with patient's and will call us back. Informed Blade that patient will be placed in [place] at this time.
--- NOTE | 2020-02-10 00:31 | NUR ---
Belongings checklist completed, belongings sent with [place] [facility] Nursing toy assembly supervisor notified. Patient transported to [facility] after placement in body bag. Name tags placed on left big toe, on body bag, and bag of belongings.
--- NOTE | 2020-02-10 00:38 | NUR ---
Patient [place] [facility] [place]
--- NOTE | 2020-02-10 01:03 | NUR ---
Called tool drawing checker's office, spoke with last name Jaycob, no tool drawing checker's case.
[2020-02-10 09:13] LABS: CRYPTOCOCCUS AB, SERUM Negative (Negative)
[2020-02-10 19:15] LABS: COCCIDIOIDES CF SERUM Negative (Neg:<1:2)
== END 2020-02-09 22:44 | disposition expired | DRG 177 ==
LOC: ER 13:16 → TRANSITION 18:38 → TELE3 02-03 21:31 → TRANSITION 02-06 15:56 → TELE3 02-06 15:56
PROVIDERS: ADMIT Nurse Practitioner Acute Care; ATTEND Nurse Practitioner Acute Care
PROC: 5A1D70Z Performance of Urinary Filtration, Intermittent, Less than 6 Hours Per Day (ICD-10-PCS; principal; 2020-02-01)
PROC: XW033H5 Introduction of Tocilizumab into Peripheral Vein, Percutaneous Approach, New Technology Group 5 (ICD-10-PCS; 2020-02-06)
PROC: 02HV33Z Insertion of Infusion Device into Superior Vena Cava, Percutaneous Approach (ICD-10-PCS; 2020-02-06)
PROC: B548ZZA Ultrasonography of Superior Vena Cava, Guidance (ICD-10-PCS; 2020-02-06)
PROC: 5A09457 Assistance with Respiratory Ventilation, 24-96 Consecutive Hours, Continuous Positive Airway Pressure (ICD-10-PCS; 2020-02-07)
PROC: 5A12012 Performance of Cardiac Output, Single, Manual (ICD-10-PCS; 2020-02-09)
DX: U07.1 COVID-19 (principal); N18.6 End stage renal disease; I50.43 Acute on chronic combined systolic (congestive) and diastolic (congestive) heart failure; J12.89 Other viral pneumonia; J96.01 Acute respiratory failure with hypoxia; E43 Unspecified severe protein-calorie malnutrition; I13.2 Hypertensive heart and chronic kidney disease with heart failure and with stage 5 chronic kidney disease, or end stage renal disease; D68.59 Other primary thrombophilia; R57.9 Shock, unspecified; Z99.2 Dependence on renal dialysis; Z95.810 Presence of automatic (implantable) cardiac defibrillator; Z95.1 Presence of aortocoronary bypass graft; Z88.2 Allergy status to sulfonamides; Z88.0 Allergy status to penicillin; E87.5 Hyperkalemia; I25.5 Ischemic cardiomyopathy; I25.10 Atherosclerotic heart disease of native coronary artery without angina pectoris; Z98.61 Coronary angioplasty status; I34.0 Nonrheumatic mitral (valve) insufficiency; E78.5 Hyperlipidemia, unspecified; E66.9 Obesity, unspecified; Z68.32 Body mass index [BMI] 32.0-32.9, adult; N40.1 Benign prostatic hyperplasia with lower urinary tract symptoms; R33.8 Other retention of urine; M81.0 Age-related osteoporosis without current pathological fracture; M19.90 Unspecified osteoarthritis, unspecified site; I72.8 Aneurysm of other specified arteries; Z87.891 Personal history of nicotine dependence; D63.8 Anemia in other chronic diseases classified elsewhere; R74.01 Elevation of levels of liver transaminase levels; Z79.82 Long term (current) use of aspirin; Z79.899 Other long term (current) drug therapy
CPT/HCPCS: 36415; 36600; 70030-TC; 71045; 83605; 83615; 83735; 84100; 85025; 85730; 86140; 86480; 87040; 87077; 87328; 87400; 90937; 93005; 94660; A4663; G0378; J0171; J0282; J0461; J0610; J0692; J1100; J1200; J1644; J1815; J2370; J3262; J3370; J3490; J3535; J7040; J7050; J7060; J8499; U0003